=== PATIENT | male | born 2000 | race Caucasian/White ===

== ENCOUNTER 2020-01-24 12:32 | Outpatient (REF) | payer OTHER, SELFPAY | END 2020-01-24 12:33 | disposition home or self-care (01) | LOC: HO.WFDLDS 12:32 | PROVIDERS: PCP Hospitalist; Visit Provider Hospitalist | DX: Z20.828 Contact with and (suspected) exposure to other viral communicable diseases (principal) | CPT/HCPCS: 87635 ==

== ENCOUNTER 2020-03-08 12:31 | Outpatient (REF) | payer OTHER, BC, SELFPAY | END 2020-03-08 12:32 | disposition home or self-care (01) | LOC: HO.WFDLDS 12:31 | PROVIDERS: Visit Provider Internal Medicine | DX: Z20.828 Contact with and (suspected) exposure to other viral communicable diseases (principal) | CPT/HCPCS: C9803; U0003 ==

== ENCOUNTER 2020-04-16 16:36 | Outpatient (REF) | payer BC, SELFPAY | END 2020-04-16 16:37 | disposition home or self-care (01) | LOC: HO.LAB 16:36 | PROVIDERS: Visit Provider Hospitalist | DX: Z00.01 Encounter for general adult medical examination with abnormal findings (principal); R82.90 Unspecified abnormal findings in urine | CPT/HCPCS: 87086 ==

== ENCOUNTER 2020-04-18 10:24 | Outpatient (REF) | payer BC, SELFPAY ==
[2020-04-18 14:17] LABS: Hematocrit 43.3 % (42-52); Hemoglobin 14.4 g/dl (14.0-18.0); Mean Corpuscular HGB Conc 33.3 g/dl (31.0-36.0); Mean Corpuscular Hemoglobin 29.6 pg (27.0-33.0); Mean Corpuscular Volume 89.1 fL (80-98); Mean Platelet Volume 10.1 fL (9.4-12.4); Platelet Count 371 X10*3/uL (160-400); Red Blood Count 4.86 X10*6/uL (4.60-5.80); Red Cell Distribution Width 13.1 % (11.0-16.0); White Blood Count 8.2 X10*3/uL (4.8-10.8)
[2020-04-18 14:40] LABS: Alanine Aminotransferase 81 U/L (0-40); Albumin Level 4.5 g/dL (3.5-5.0); Alkaline Phosphatase 55 U/L (39-117); Anion Gap 13 (12-20); Aspartate Amino Transferase 36 U/L (5-37); Bilirubin Direct 0.3 mg/dL (0.0-0.5); Bilirubin Total 0.5 mg/dL (0.0-1.0); Blood Urea Nitrogen 15 mg/dL (9-16); Calcium 9.2 mg/dL (8.4-10.2); Carbon Dioxide 27 mmol/L (22-29); Chloride 105 mmol/L (96-108); Cholesterol 162 mg/dL; Estimated Glomerular Filt Rate > 60; Glucose Fasting 103 mg/dL (60-99); HDL Cholesterol 41 mg/dL; LDL Cholesterol Calculated 110 mg/dl; Potassium 4.2 mmol/l (3.3-5.1); Sodium 141 mmol/L (135-145); Total Protein 7.7 g/dL (6.5-8.0); Triglycerides 59 mg/dL
[2020-04-18 14:51] LABS: TSH reflex Free T4 1.49 mIU/mL (0.32-4.0)
== END 2020-04-18 10:25 | disposition home or self-care (01) ==
LOC: HO.WFDLDS 10:24
PROVIDERS: Visit Provider Hospitalist
DX: Z20.822 Contact with and (suspected) exposure to COVID-19 (principal)
CPT/HCPCS: 36415; 80048; 80061; 80076; 84443; 85027; C9803; U0003

== ENCOUNTER 2020-06-26 14:00 | Outpatient (RCR) | payer BC, SELFPAY ==
--- NOTE | 2020-06-07 07:50 | MHC.PT.OD ---
[facility] [place] Office [place] Office [place] Office [address] Chelsie Hendrix [address] [phone] F: [phone] F: [phone] F: [phone] F: [phone] Physical Therapy Daily Note Diagnosis: Pain in right shoulder- M25.511 referred to PT from PCP Quin Solorzano NP date of referral 05/22/20 Date of Surgery: Date of Evaluation: 05/31/20 Date of Treatment: 06/06/20 Treatments to Date: 1 Cancellations to Date: No Shows to Date: Authorized Visits: 12 Insurance End Date: Precautions/ Contraindications:?PMH. PER [facility] NOTES:=GE REFLUX Subjective: Pt REPORTS HIS SHLDER IS FEELING TERRIBLE . REPORTS HE WAS GIVING A TATOO YESTERDAY (SIDE JOB) AND HIS ARM WENT NUMB. AFTER FURTHER DISCUSSION HE REPORTS HE HAD A SHARP PAIN IN HIS R SHLDER THEN PAIN SHOT DOWN R ARM AND FINGERS WENT NUMB THEN THIS SENSATION WENT AWAY Pain Score and Location: 5 R SHLDER Objective Flowsheet: Tests & Measures see eval Exercises UBE 5MIN/5MIN ANT/POST NO RESISTANCE INST IN AND PERF SEATED TABLE SLIDE SHLDER FLEX/SCAPTION/ABD X 2 SETS OF 5 EA, HL FOR AAROM WITH CANE SHLDER FLEX AND CHEST PRESS X 10-20 R EA, PRONE FOR SHLDER EXT, ROW, SL SHLDER ER X 10 R EA B, STANDING ROW, SHLDER EXT, SHLDER ER WITH RED TB X 10 R EA, DIST EX SHEET SIGNIF ED TO Pt RE DX FROM [facility] HEAT STROKE NOT STROKE, ED RE TREATMENT PLAN IN PT. Pt ?ING WHAT WILL HAPPEN IF PT DOESNT HELP, ALSO DISCUSSED Pt'S WORK AND WORK CAPACITY. SPOKE WITH PRIMARY PT RE DX, TRIED TO SPEAK WITH REFERRING PROVIDER (QUIN) BUT SHE WAS WITH A Pt Modalities Assessment: Pt WITH CONFLICTING INFORMATION (VS NOTES FROM [facility] RE ADMISSION (10/12-10/13/20) ..Pt REPORTS HE WAS IN THE HOSPITAL X 4 DAYS (?) AND REPORTS HE WAS PARALYZED (?) HIS DC DIAGNOSIS WAS HEAT STROKE, SEIZURE, POST CONCUSSIVE SYNDROME. Pt WAS ABLE TO PERF STRETCHES AND EXS WITHOUT SIGNIF DIFFICULTY OR SIGNIF INCREASE IN PAIN PT Plan: PROGRESS UPPER BODY STRENGTHENING MARKO Short Term Goals: 1. Pt will be initiated in HEP program. 2. Pt will demonstrate strength bilateral shoulder flexion 5/5 to resume reaching overhead for work tasks. 3. Demonstrate proper body mechanics 20# box crate in preparation for RTW demands. 4. Strength ER 5/5 to reduce neck pain. Mcfp Goals: 1. Pt will demonstrate I HEP program for UE/cervical stab 2. SPADI score to improve by 50%. 3. Verbalize centralization sx of bilateral UE duing ADLS/IADLS. 4. RTW full duty with report pain R>L shoulder <2/10. Electronically signed by: BEBO JONES PT
--- NOTE | 2020-07-02 12:07 | MHC.PT.DC ---
[facility] [place] Office [place] Office [place] Office [address] Hendrix [address] [phone] F: [phone] F: [phone] F: [phone] F: [phone] Physical Therapy Discharge Report Diagnosis: Pain in right shoulder- M25.511 referred to PT from PCP Quin Solorzano NP date of referral 05/22/20 Date of Surgery: Date of Evaluation: 05/31/20 Date of Discharge: Treatments to Date: 6 Cancellations to Date: 5 No Shows to Date: Discharge Status: Patient Elected to Stop Visit Non-compliance Discharge Summary: Patient called to cancel appointment today; has had history of inconsistent attendance informed pt that he will be allowed one more cancellation prior to being D/C due to noncompliance. Pt verbalized difficulty hearing therapist on phone and then phone call was dropped. [place] stated patient called back and was requesting self D/C at this time. D/C pt due to non compliance- therapist recommending pt follow up with referring provider upon D/C from PT due to limited gains at this time. Electronically signed by: Esther Watkins, PT, DPT Please sign and return to therapist. Thank you for your referral.
== END 2020-07-09 08:17 | disposition other institution (70) ==
LOC: HO.PTWFD 14:00
PROVIDERS: Visit Provider Hospitalist
DX: M25.511 Pain in right shoulder (principal)
CPT/HCPCS: 97110; 97162; 97535

== ENCOUNTER 2021-08-14 14:20 | Outpatient (REF) | payer OTHER, SELFPAY ==
--- NOTE | ~2021-08-14 | MM_ITS ---
EXAMINATION: MM DIAGNOSTIC DIGITAL BREAST TOMOSYNTHESIS, BILATERAL US DIAGNOSTIC ULTRASOUND BREAST, LEFT CLINICAL INFORMATION: 21-year-old male with subtle fullness and tenderness left breast. No discharge. No prior breast imaging. No known family history breast cancer. COMPARISON: None (current study represents initial baseline exam). TECHNIQUE: Digital breast tomosynthesis is performed in both the craniocaudal and mediolateral oblique views along with computer-aided detection (CAD). Synthesized 2D images are generated from the tomosynthesis. Ultrasound left breast is targeted to the subareolar and periareolar region using grayscale imaging without and with harmonics and color Doppler. FINDINGS: There are scattered areas of fibroglandular density (ACR BI-RADS breast composition Category b). There is mild gynecomastia pattern anterior left breast. There is no mass or architectural abnormality. There are no abnormal calcifications. Scattered isolated small round dermal calcifications are present on both sides. The axilla are unremarkable. Small intramammary node present on right upper outer quadrant. No skin thickening or coarsening of the stromal markings. Ultrasound left breast demonstrates no cystic or solid mass, architectural abnormality, or focal duct ectasia. No skin thickening or edema tracking in soft tissue planes. Results are discussed with the patient at time of visit. MM/MM tomosynthesis diagnostic BI IMPRESSION: Mild asymmetric gynecomastia on left. Unremarkable right breast. ASSESSMENT: BI-RADS 2: Benign RECOMMENDATION: Patient should be managed based on the clinical impression. If clinically indicated, further evaluation may be considered with surgical consult. Decision to proceed with biopsy should be based on clinical grounds and degree of clinical concern.
== END 2021-08-14 14:21 | disposition home or self-care (01) ==
LOC: HO.MAMMO 14:20
PROVIDERS: PCP Hospitalist; Visit Provider Hospitalist
DX: N64.4 Mastodynia (principal)
CPT/HCPCS: 76642; 77062; 77066

== ENCOUNTER → 2021-09-24 13:01 | Outpatient (BNVA) | payer OTHER, SELFPAY | PROVIDERS: PCP Hospitalist; Visit Provider Internal Medicine Endocrinology, Diabetes & Metabolism | DX: N62 Hypertrophy of breast (principal) | CPT/HCPCS: 99202 ==

== ENCOUNTER → 2022-01-09 12:59 | Outpatient (BNVA) | payer OTHER, SELFPAY | PROVIDERS: PCP Hospitalist; Visit Provider Psychiatry & Neurology Neurology | DX: G40.909 Epilepsy, unspecified, not intractable, without status epilepticus (principal); R06.83 Snoring; G47.10 Hypersomnia, unspecified | CPT/HCPCS: 99202 ==

== ENCOUNTER 2022-01-13 09:36 | Outpatient (REF) | payer OTHER, SELFPAY ==
--- NOTE | ~2022-01-13 | XR_ITS ---
EXAMINATION: XR HIP, RIGHT CLINICAL INFORMATION: Pain COMPARISON: None TECHNIQUE: Two views of the right hip. FINDINGS: Bones and soft tissues are normal. No fracture. Alignment is anatomic. Hip joint space is maintained. XR/XR hip RT min 2V IMPRESSION: Normal right hip.
[2022-01-13 11:48] LABS: Hematocrit 43.3 % (42.0-52.0); Hemoglobin 14.3 g/dl (14.0-18.0); Mean Corpuscular Hemoglobin 29.2 pg (27.0-33.0); Mean Corpuscular Volume 88.4 fL (80.0-98.0); Mean Platelet Volume 10.2 fL (9.4-12.4); Platelet Count 376 X10*3/uL (160-400); Red Cell Distribution Width 13.2 % (11.0-16.0); White Blood Count 8.7 X10*3/uL (4.8-10.8)
[2022-01-13 12:18] LABS: TSH reflex Free T4 3.02 uIU/mL (0.32-4.0)
[2022-01-13 12:24] LABS: Alanine Aminotransferase 88 U/L (0-40); Albumin Level 4.6 g/dL (3.5-5.0); Alkaline Phosphatase 55 U/L (39-117); Anion Gap 17 (12-20); Aspartate Amino Transferase 44 U/L (5-37); Bilirubin Total 0.6 mg/dL (0.0-1.0); Blood Urea Nitrogen 17 mg/dL (9-16); Calcium 9.6 mg/dL (8.4-10.2); Carbon Dioxide 26 mmol/L (22-29); Chloride 102 mmol/L (96-108); Cholesterol 170 mg/dL; Estimated Glomerular Filt Rate > 60; Glucose Fasting 85 mg/dL (60-99); HDL Cholesterol 48 mg/dL; LDL Cholesterol Calculated 108 mg/dl; Potassium 4.6 mmol/L (3.3-5.1); Sodium 140 mmol/L (135-145); Triglycerides 72 mg/dL
[2022-01-15 08:52] LABS: DHEA Sulfate 367 mcg/dL (74-617)
[2022-01-19 20:37] LABS: Testosterone, Free 54.6 pg/mL (35.0-155.0); Testosterone, Total 307 ng/dL (250-1100)
[2022-01-26 02:57] LABS: Estradiol Free 0.75 pg/mL; Estradiol, Ultrasensitive 37 pg/mL (< OR = 29)
== END 2022-01-13 09:37 | disposition home or self-care (01) ==
LOC: HO.LAB 09:36
PROVIDERS: Absent Provider Internal Medicine Endocrinology, Diabetes & Metabolism; PCP Hospitalist; Visit Provider Hospitalist
DX: Z00.00 Encounter for general adult medical examination without abnormal findings (principal); M25.551 Pain in right hip; N62 Hypertrophy of breast
CPT/HCPCS: 36415; 73502; 80053; 80061; 82627; 82670; 82681; 84402; 84403; 84443; 85027

== ENCOUNTER → 2022-01-23 16:01 | Outpatient (REF) | payer OTHER, SELFPAY | LOC: HO.SL 16:01 | PROVIDERS: Visit Provider Psychiatry & Neurology Neurology | DX: G47.10 Hypersomnia, unspecified (principal); R06.83 Snoring | CPT/HCPCS: 95806 ==

== ENCOUNTER 2022-01-24 18:59 | Outpatient (REF) | payer OTHER, SELFPAY ==
--- NOTE | ~2022-01-24 | MR_ITS ---
EXAMINATION: MR BRAIN WITHOUT CONTRAST CLINICAL INFORMATION: Epilepsy. COMPARISON: None. TECHNIQUE: Multiplanar, multisequence imaging of the brain was acquired on a 3 Sommer magnet without intravenous administration of contrast. FINDINGS: No diffusion abnormalities are identified to suggest an acute infarct. The ventricles are normal in size. No mass effect or midline shift is seen. No brain parenchymal signal abnormality is noted. No extra-axial fluid collections are seen. The brainstem and cerebellum are normal. No focal cortical dysplasia or migrational abnormality is seen. The hippocampi are normal in appearance. The gradient refocused acquisition demonstrates no pathologic magnetic susceptibility artifact to indicate underlying acute or chronic blood products. The craniovertebral junction, marrow signal, and midline structures are normal. The orbits and pituitary axis appear normal. The major intracranial flow voids at the level of the [place] are preserved. The dural venous sinus flow voids are maintained. The mastoid air cells are well aerated. There is mild right maxillary sinus mucosal thickening. MR/MR head/brain wo con IMPRESSION: Normal MRI of the brain. No acute process. No epileptogenic focus identified. No hippocampal pathology.
== END 2022-01-24 19:00 | disposition home or self-care (01) ==
LOC: HO.MRI 18:59
PROVIDERS: Visit Provider Psychiatry & Neurology Neurology
DX: G40.909 Epilepsy, unspecified, not intractable, without status epilepticus (principal)
CPT/HCPCS: 70551

== ENCOUNTER 2022-03-06 16:28 | Outpatient (REF) | payer OTHER, SELFPAY ==
--- NOTE | ~2022-03-06 | US_ITS ---
EXAMINATION: US SCROTUM CLINICAL INFORMATION: Hypertrophy of breast. COMPARISON: None TECHNIQUE: A sonogram of the scrotum was performed assessing erickson-scale appearance and color Doppler flow. Spectral Doppler analysis of the arterial and venous flow were performed in the testes bilaterally. FINDINGS: RIGHT: Right testicle measures 3.7 x 2.1 x 2.6 cm, volume 9.8 mL. No focal testicular parenchymal lesions are visualized. Spectral Doppler analysis of the arterial and venous flow is normal in the right testis. Right epididymal head is normal in size. No right hydrocele or varicocele is seen. Right epididymal Doppler flow is normal. LEFT: Left testicle measures 3.8 x 2.0 x 2.7 cm, volume 10.2 mL. There is a dense echogenic calcification measuring 0.2 x 0.2 x 0.3 cm. No additional lesions are seen. Spectral Doppler analysis of the arterial and venous flow is normal in the left testis. Left epididymal head is normal in size. There is a small, simple, epididymal head cyst measuring 0.31 x 0.4 x 0.4 cm. No left hydrocele or varicocele is seen. Left epididymal Doppler flow is normal. US/US scrotum IMPRESSION: 1. Small left epididymal head cyst. 2. There is a dense calcification in the left testis. 3. The testes are otherwise unremarkable. 4. Normal vascular flow seen to both testes and epididymides.
== END 2022-03-06 16:29 | disposition home or self-care (01) ==
LOC: HO.US 16:28
PROVIDERS: Visit Provider Internal Medicine Endocrinology, Diabetes & Metabolism
DX: N62 Hypertrophy of breast (principal)
CPT/HCPCS: 76870

== ENCOUNTER → 2022-03-13 14:53 | Outpatient (BNVA) | payer OTHER, SELFPAY | PROVIDERS: PCP Hospitalist; Visit Provider Nurse Practitioner Family | DX: G40.909 Epilepsy, unspecified, not intractable, without status epilepticus (principal) | CPT/HCPCS: 99212 ==

== ENCOUNTER → 2022-04-24 13:54 | Outpatient (BNVA) | payer OTHER, SELFPAY | PROVIDERS: PCP Hospitalist; Visit Provider Nurse Practitioner Family | DX: G40.909 Epilepsy, unspecified, not intractable, without status epilepticus (principal) | CPT/HCPCS: 99212 ==

== ENCOUNTER → 2022-05-29 14:31 | Outpatient (BNVA) | payer OTHER, SELFPAY | PROVIDERS: PCP Hospitalist; Visit Provider Physician Assistant Surgical | DX: Z13.89 Encounter for screening for other disorder (principal) ==

== ENCOUNTER → 2022-06-04 08:09 | Outpatient (BNVA) | payer OTHER, SELFPAY | PROVIDERS: PCP Hospitalist; Visit Provider Surgery | DX: Z13.89 Encounter for screening for other disorder (principal) ==

== ENCOUNTER → 2022-06-05 15:08 | Outpatient (BNVA) | payer OTHER, SELFPAY | PROVIDERS: PCP Hospitalist; Visit Provider Nurse Practitioner Family | DX: G40.909 Epilepsy, unspecified, not intractable, without status epilepticus (principal); Z79.899 Other long term (current) drug therapy | CPT/HCPCS: 99212 ==

== ENCOUNTER 2022-06-07 19:48 | Emergency (ER) | payer OTHER, SELFPAY ==
[2022-06-07 20:38] VITALS: BP 149/95; PULSE 95; RESP 18; TEMP 36.6; O2SAT 98; BMI 41.3
--- NOTE | 2022-06-07 20:39 | ED.GENADULT ---
HPI - General Adult General Chief complaint: Upper Respiratory Symptoms Stated complaint: Sinus pressure Time Seen by Provider: 06/07/22 20:42 Source: patient Mode of arrival: ambulatory Limitations: no limitations History of Present Illness HPI narrative: Patient is a 21 year old assigned male at with a history of a seizure disorder presenting to the emergency department today with 7 days of sinus pressure and congestion. Patient states that over the last 7 days he has had increased sinus pressure and nasal congestion. Patient denies any dizziness, lightheadedness, abdominal pain, nausea, vomiting, fever, chills, blurry vision, double vision, loss of vision, chest pain, difficulty breathing, shortness of breath, back pain, night sweats, pain with urination, increased urinary frequency, increased urinary urgency, blood in his urine or stool, syncope or a near syncopal episode, recent trauma or falls, bowel incontinence, bladder incontinence, bowel retention, bladder retention, or any other complaints at this time. Onset (ago): day(s) (7) Radiation: non-radiation Severity: mild Severity scale (1-10): 2 Quality: dull Pain Consistency: constant Relieving factors: none Exacerbating factors: none Associated symptoms: denies other symptoms Treatments prior to arrival: none Related Data Home Medications Medication Instructions Recorded Confirmed omeprazole 20 mg capsule,delayed 20 mg PO BID 05/29/22 06/05/22 release fluoxetine 20 mg capsule 20 mg PO DAILY 06/05/22 06/05/22 Previous Rx's Medication Instructions Recorded oxcarbazepine 300 mg tablet 600 mg PO BID 30 days #120 tabs 06/05/22 doxycycline hyclate 100 mg tablet 100 mg PO BID 7 days #14 tabs 06/07/22 naproxen 500 mg tablet 500 mg PO BID 7 days #14 tabs 06/07/22 Allergies Allergy/AdvReac Type Severity Reaction Status Date / Time tree nut [TREE NUT] Allergy Severe THOAT Verified 06/07/22 20:38 SWELLING Review of Systems Constitutional: Constitutional: Reports no additional constitutional complaints, Denies chills, Denies fever(s) and Denies night sweats Eyes: Eyes: Reports no additional eye complaints, Denies blurry vision, Denies change in vision, Denies diplopia, Denies eye discharge, Denies loss of vision and Denies eye pain ENT: Denies dizziness and Reports sinus pain Cardiovascular: Cardiovascular: Reports no additional cardiovascular complaints, Denies chest pain, Denies lightheadedness, Denies Loss of Consciousness and Denies dyspnea Respiratory: Respiratory: Reports no additional respiratory complaints and Denies dyspnea Gastrointestinal: Gastrointestinal: Reports no additional gastrointestinal complaints, Denies abdominal pain, Denies melena, Denies hematochezia, Denies change in bowel habits and Denies change in stool character Genitourinary: Genitourinary: Reports no additional male genitourinary complaints, Denies hematuria, Denies oliguria, Denies difficulty urinating, Denies dysuria, Denies urinary frequency, Denies urinary hesitancy, Denies urinary incontinence and Denies urinary urgency Musculoskeletal: Musculoskeletal: Reports no additional musculoskeletal complaints, Denies numbness and Denies tingling Neurologic: Denies dizziness, Denies loss of vision, Denies numbness and Denies tingling Psychiatric: Psychiatric: Reports no additional psychiatric complaints Endocrine: Endocrine: Reports no additional endocrine complaints Hematologic/Lymphatic: Hematologic/Lymphatic: Reports no additional hematologic/lymphatic complaints Allergic/Immunologic: Allergic/Immunologic: Reports no additional allergic/immunologic complaints [facility] Past Medical History Attestation statement: The following information was validated with the patient. 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 Cognitive needs: No Hearing needs: No Vision needs: No Physical Exam ED Vital Signs: Vital Signs - 24 hr 06/07/22 20:38 Temperature 97.9 F Pulse Rate 95 Respiratory Rate 18 Blood Pressure 149/95 H Pulse Oximetry 98 Oxygen Delivery Method Room Air BMI result Body Mass Index 41.3 Const General: cooperative, no acute distress, alert and awake Nutritional Appearance: well nourished Orientation/consciousness: patient oriented x3 Limitations: no limitations HENMT Head: Yes normal to inspection and Yes atraumatic Ears: hearing grossly normal bilaterally and external ears normal General nose exam: Normal external nose present, no nasal discharge noted and no epistaxis Face and sinus: Yes normal facial exam, No abrasion and No laceration Mouth: Normal oral and palatal mucosa present, no drooling and no muffled voice Eyes General: appearance normal, both eyes and all related structures Periorbital: periorbital findings normal Eyelids: Yes eyelids normal Conjunctivae: conjunctivae normal Pupils: Equal, round and reactive pupils present EOM: EOMs intact bilaterally Neck Neck: Yes normal visual inspection, Yes full ROM and Yes no lymphadenopathy Chest Chest palpation & inspection: normal inspection of the chest Resp Effort & Inspection: normal respiratory effort and able to speak in complete sentences Auscultation: clear to auscultation bilaterally Cardio Rate: regular rate Rhythm: regular rhythm GI Inspection: Yes normal to inspection Neuro General: patient oriented x3 and moves all extremities Cranial nerves: Yes Equal, round and reactive pupils present Cognition (Neuro): normal cognition Motor exam (neuro): 5/5 motor strength present throughout Sensory Exam: Normal double simultaneous stimulation for sensation Coordination: [id number] test normal Extrem General: Yes normal to inspection, Yes full ROM and Yes capillary refill normal Psych Appearance: grossly normal Mental Status: mental status grossly normal Affect: normal affect Attitude: cooperative Thought process: Normal thought process present Thought content: Normal thought content present Insight: Good insight present (Psych) Medical Decision Making Medical Decision Making MDM Narrative: Patient is a 21 year old assigned male at with a history of a seizure disorder presenting to the emergency department today with sinus pain and pressure. Patient's physical exam was unremarkable. Patient's clinical presentation is most consistent with sinusitis. I explained my physical exam findings to the patient. I answered all questions asked by the patient. I stressed the importance of the patient taking his medication as prescribed. I stressed the importance of the patient following up with his primary care provider. I stressed the importance of the patient returning to the emergency department immediately if his symptoms were to worsen or if he were to develop any dizziness, shortness of breath, difficulty breathing, chest pain, blurry vision, loss of vision, nausea, vomiting, abdominal pain, fever, chills, back pain, or any other complaints. Patient verbalized agreement and understanding with this treatment plan and discharge. Differential Diagnosis Differential Diagnoses: The differential diagnosis associated with the presentation includes sinusitis Discharge Plan Discharge Clinical Impression: Sinusitis Patient Disposition: Home, Self-Care Instructions: Sinusitis (ED) Additional Instructions: Follow up with your primary care provider. Return to the emergency department immediately if your symptoms worsen or if you develop any dizziness, shortness of breath, difficulty breathing, chest pain, blurry vision, loss of vision, nausea, vomiting, abdominal pain, fever, chills, back pain, or any other complaints. Prescriptions: New doxycycline hyclate 100 mg tablet 100 mg PO BID 7 Days Qty: 14 0RF naproxen 500 mg tablet 500 mg PO BID 7 Days Qty: 14 0RF No Action oxcarbazepine 300 mg tablet 600 mg PO BID 30 Days Qty: 120 1RF fluoxetine 20 mg capsule 20 mg PO DAILY omeprazole 20 mg capsule,delayed release(DR/EC) 20 mg PO BID Referrals: Quin Solorzano NP [Primary Care Provider] - Interventions: ED Discharge Assessment Last Done: 06/07/22 20:44 Discharge Date/Time: 06/07/22 20:57 Print Language: Armenian
--- NOTE | 2022-06-07 20:44 | PC.NURSE ---
pt a&ox3, vss, reporting sinus pressure after URI sx for 5+ days, pt discharged with rx to pharmacy.
== END 2022-06-07 20:57 | disposition home or self-care (01) ==
LOC: HO.ED 20:44
PROVIDERS: Emergency Provider Student in an Organized Health Care Education/Training Program; PCP Hospitalist
DX: J32.9 Chronic sinusitis, unspecified (principal)
CPT/HCPCS: 99282; 99283

== ENCOUNTER → 2022-07-16 13:35 | Outpatient (BNVA) | payer OTHER, SELFPAY | PROVIDERS: PCP Hospitalist; Visit Provider Nurse Practitioner Family | DX: G40.909 Epilepsy, unspecified, not intractable, without status epilepticus (principal) | CPT/HCPCS: 99212 ==

== ENCOUNTER → 2022-07-25 07:59 | Outpatient (BNVA) | payer OTHER, SELFPAY | PROVIDERS: PCP Hospitalist; Visit Provider Surgery ==

== ENCOUNTER → 2022-08-18 08:15 | Outpatient (BNVA) | payer OTHER, SELFPAY | PROVIDERS: PCP Hospitalist; Visit Provider Surgery ==

== ENCOUNTER 2022-08-20 13:31 | Outpatient (REF) | payer OTHER, SELFPAY ==
[2022-08-20 13:53] LABS: MANUAL DIFF FLAG NO
[2022-08-20 14:35] LABS: Basophils Percent Auto 0.5 % (0-2); Eosinophils Absolute Auto 0.2 X10*3/uL (0.0-0.4); Hematocrit 42.8 % (42.0-52.0); Hemoglobin 14.2 g/dl (14.0-18.0); Imm Gran Abs Auto 0.02 X10*3/uL (0.00-0.03); Imm Gran Pct Auto 0.2 % (0.0-0.4); Lymphocytes Absolute Auto 2.6 X10*3/uL (1.2-4.9); Mean Corpuscular HGB Conc 33.2 g/dl (31.0-36.0); Mean Corpuscular Hemoglobin 29.4 pg (27.0-33.0); Mean Corpuscular Volume 88.6 fL (80.0-98.0); Mean Platelet Volume 9.5 fL (9.4-12.4); Monocytes Absolute Auto 0.7 X10*3/uL (0.1-1.2); Monocytes Percent Auto 7.7 % (2-11); Neutrophils Absolute Auto 4.9 x10*3/uL (2.0-8.3); Neutrophils Percent Auto 58.6 % (45-73); Platelet Count 371 X10*3/uL (160-400); Red Blood Count 4.83 X10*6/uL (4.60-5.80); Red Cell Distribution Width 13.2 % (11.0-16.0); White Blood Count 8.4 X10*3/uL (4.8-10.8)
[2022-08-20 14:58] LABS: Estimated Average Glucose 103 mg/dL; Hemoglobin A1c % 5.2 %
[2022-08-20 16:04] LABS: Alanine Aminotransferase 137 U/L (0-40); Albumin Level 4.3 g/dL (3.5-5.0); Alkaline Phosphatase 57 U/L (39-117); Anion Gap 15 (12-20); Aspartate Amino Transferase 55 U/L (5-37); Bilirubin Total 0.7 mg/dL (0.0-1.0); Blood Urea Nitrogen 18 mg/dL (9-16); C Reactive Protein 0.59 mg/dL (< or = 0.50); Calcium 9.5 mg/dL (8.4-10.2); Carbon Dioxide 28 mmol/L (22-29); Chloride 104 mmol/L (96-108); Cholesterol 192 mg/dL; Estimated Glomerular Filt Rate > 60; Glucose Random 95 mg/dL (60-115); HDL Cholesterol 45 mg/dL; Iron 89 mcg/dL (45-160); LDL Cholesterol Calculated 129 mg/dl; Percent Iron Saturation 28 % (15-50); Potassium 4.5 mmol/L (3.3-5.1); Sodium 142 mmol/L (135-145); Total Iron Binding Capacity 313 mcg/dL (228-428); Total Protein 7.7 g/dL (6.5-8.0); Triglycerides 90 mg/dL; Unsaturated Iron Binding 224 ug/dL
[2022-08-20 16:34] LABS: Ferritin 306 ng/mL (20-250); Insulin 21 uU/mL (2-29); TSH reflex Free T4 2.95 uIU/mL (0.32-4.0); Vitamin B12 568 pg/mL (200-900); Vitamin D 25-OH Total 7.6 ng/mL (>30)
[2022-08-21 15:44] LABS: Calcium (PTHI) 9.3 mg/dL (8.6-10.3); PTHI 60 pg/mL (16-77)
[2022-08-24 14:59] LABS: H Pylori Breath Test Positive (Negative)
[2022-08-27 14:28] LABS: Vitamin B1 10 nmol/L (8-30)
[2022-08-28 02:34] LABS: Zinc 110 mcg/dL (60-130)
[2022-08-28 20:24] LABS: Vitamin A 33 mcg/dL (38-98)
== END 2022-08-20 13:32 | disposition home or self-care (01) ==
LOC: HO.LAB 13:31
PROVIDERS: Visit Provider Surgery
DX: E66.01 Morbid (severe) obesity due to excess calories (principal); K21.9 Gastro-esophageal reflux disease without esophagitis; N50.89 Other specified disorders of the male genital organs; N62 Hypertrophy of breast; N50.819 Testicular pain, unspecified
CPT/HCPCS: 36415; 80053; 80061; 82306; 82607; 82728; 82746; 83013; 83036; 83525; 83540; 83970; 84425; 84443; 84590; 84630; 85025; 86140; 99202; 99211

== ENCOUNTER 2022-08-20 14:53 | Outpatient (AMB) | payer OTHER, SELFPAY ==
--- NOTE | 2022-08-20 15:07 | MHC.OFFVIS ---
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 08/20/2022-- States having testicular pain while touching or taking the shower. had lump in breast and has followed with cat swamper. He states the lump in his breast is more noticeable while sitting. The patient states that he is adopted but he is aware that his maternal grandfather had lung cancer and great grandfather had testicular cancer, maternal uncle has testicular cancer and his mother had early stage breast cancer. Evaluation today-- Blood: negative, leukocytes: negative. I reviewed testicular sono results- 02/2022-dense calcification in the left testis. I discussed that the calcification is not unusual and will repeat imaging to make sure findings are stable. I have discussed that it is unlikely that the calcification is related to his symptoms of testicular pain. Instructed to wear supportive underwear. Plan: Testicular US was ordered. Blood work including Prolactin, Lutenizing Hormone,Testosterone, Free/Total,Follicle Stimulating Hormone, estradiol, HCG and LDH was ordered. Follow-up after 10 weeks. [facility] Medical History (Updated 10/31/22 @ 00:30 by Tori Olmedo MD) Anxiety Depression Enlarged heart Gynecomastia H. 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 Cognitive needs: No Hearing needs: No Vision needs: No Review of Systems Const All systems reviewed & are unremarkable except as noted in HPI and below Reports no additional complaints Eyes Reports no additional complaints ENT Reports no additional complaints Card Denies dyspnea Resp Denies cough and Denies dyspnea GI Reports no additional complaints Musc Reports no additional complaints Skin/Breast Denies rash and Denies unusual bruising Neuro Reports no additional complaints Psych Reports no additional complaints Endo Reports no additional complaints Chris/Lymph Reports no additional complaints Aller/Immun Reports no additional complaints Physical Exam Const General: healthy appearing, no acute distress and well developed Orientation/consciousness: patient oriented x3 HEENT Head: Yes normocephalic and Yes atraumatic Eyes Conjunctivae: conjunctivae normal Neck Neck: Yes normal visual inspection Chest Chest palpation & inspection: normal inspection of the chest Resp Effort & Inspection: normal respiratory effort Cardio Rate: regular rate GI Inspection: Yes normal to inspection Palpation (GI): Soft to palpation Scrotum: scrotum normal Skin General skin exam: no rashes or lesions noted Neuro General: patient oriented x3 Extrem General: No pedal edema Psych Appearance: grossly normal Affect: normal affect Results AMB Urinalysis, Automated UA Leukoctes 0 Laura/uL Last Edit by [employer] on 08/20/22 15:31 UA Nitrite Negative Last Edit by [employer] on 08/20/22 15:31 UA Urobilinogen 0.2 mg/dL Last Edit by [employer] on 08/20/22 15:31 UA Protein 0 mg/dL Last Edit by [employer] on 08/20/22 15:31 UA pH 6.0 Last Edit by [employer] on 08/20/22 15:31 UA Blood 0 Waqas/uL Last Edit by [employer] on 08/20/22 15:31 UA Specific [place] 1.020 Last Edit by [employer] on 08/20/22 15:31 UA Ketone Negative Last Edit by [employer] on 08/20/22 15:31 UA Bilirubin 0 mg/dL Last Edit by [employer] on 08/20/22 15:31 UA Glucose 0 mg/dL Last Edit by [employer] on 08/20/22 15:31 Results Reviewed Results Reviewed: Laboratory Last Values Urine pH (Auto) 6.0 08/20/22 15:16 Specific [place] (Auto) 1.020 08/20/22 15:16 Urine Protein (Auto) 0 mg/dL 08/20/22 15:16 Glucose (UA)(Auto) 0 mg/dL 08/20/22 15:16 Urine Ketones (Auto) Negative 08/20/22 15:16 Urine Blood (Auto) 0 Waqas/uL 08/20/22 15:16 Urine Nitrite (Auto) Negative 08/20/22 15:16 Urine Bilirubin (Auto) 0 mg/dL 08/20/22 15:16 Urine Urobilinogen (Auto) 0.2 mg/dL 08/20/22 15:16 Leukocyte Esterase (Auto) 0 Laura/uL 08/20/22 15:16 Date of Service: 03/06/22 EXAMINATION: US SCROTUM CLINICAL INFORMATION: Hypertrophy of breast. COMPARISON: None TECHNIQUE: A sonogram of the scrotum was performed assessing erickson-scale appearance and color Doppler flow. Spectral Doppler analysis of the arterial and venous flow were performed in the testes bilaterally. FINDINGS: RIGHT: Right testicle measures 3.7 x 2.1 x 2.6 cm, volume 9.8 mL. No focal testicular parenchymal lesions are visualized. Spectral Doppler analysis of the arterial and venous flow is normal in the right testis. Right epididymal head is normal in size. No right hydrocele or varicocele is seen. Right epididymal Doppler flow is normal. LEFT: Left testicle measures 3.8 x 2.0 x 2.7 cm, volume 10.2 mL. There is a dense echogenic calcification measuring 0.2 x 0.2 x 0.3 cm. No additional lesions are seen. Spectral Doppler analysis of the arterial and venous flow is normal in the left testis. Left epididymal head is normal in size. There is a small, simple, epididymal head cyst measuring 0.31 x 0.4 x 0.4 cm. No left hydrocele or varicocele is seen. Left epididymal Doppler flow is normal. IMPRESSION: 1.? Small left epididymal head cyst. 2.? There is a dense calcification in the left testis. 3.? The testes are otherwise unremarkable. 4.? Normal vascular flow seen to both testes and epididymides. Assessment & Plan Assessment & Plan (1) Gynecomastia: Code(s): N62 - Hypertrophy of breast (2) Testicular calcification: Code(s): N50.89 - Other specified disorders of the male genital organs (3) Testicular pain: Code(s): N50.819 - Testicular pain, unspecified Plan Testicular US was ordered. Blood work including Prolactin, Lutenizing Hormone,Testosterone, Free/Total,Follicle Stimulating Hormone, estradiol, HCG and LDH was ordered. Follow-up after 10 weeks. Orders: Orders Estradiol Ultra Sensitive 08/20/22 N62 - Hypertrophy of breast Follicle Stimulating Hormone 08/20/22 N62 - Hypertrophy of breast HCG Tumor Marker 08/20/22 N50.89 - Other specified disorders of the male genital organs Lutenizing Hormone 08/20/22 N62 - Hypertrophy of breast Prolactin 08/20/22 N62 - Hypertrophy of breast Testosterone, Free/Total 08/20/22 N62 - Hypertrophy of breast US scrotum 08/20/22 N50.89 - Other specified disorders of the male genital organs AMB Urinalysis Automated 08/20/22 Z13.9 - Encounter for screening, unspecified Coding Level of Care Code New Pt Level 3 (85926) Diagnoses Gynecomastia N62 Testicular calcification N50.89 Testicular pain N50.819
== END 2022-08-20 15:52 | disposition home or self-care (01) ==
LOC: HO.HUSH 14:53
PROVIDERS: PCP Hospitalist; Visit Provider Urology
DX: N62 Hypertrophy of breast (principal); N50.89 Other specified disorders of the male genital organs; N50.819 Testicular pain, unspecified
CPT/HCPCS: 99203

== ENCOUNTER → 2022-09-01 13:31 | Outpatient (BNVA) | payer OTHER, SELFPAY | PROVIDERS: PCP Hospitalist; Visit Provider Nurse Practitioner Family | DX: G40.909 Epilepsy, unspecified, not intractable, without status epilepticus (principal) | CPT/HCPCS: 99212 ==

== ENCOUNTER 2022-09-04 11:37 | Outpatient (REF) | payer OTHER, SELFPAY ==
--- NOTE | ~2022-09-04 | US_ITS ---
EXAMINATION: US SCROTUM CLINICAL INFORMATION: Testicular calcification. COMPARISON: Ultrasound scrotum 03/06/2022. TECHNIQUE: A sonogram of the scrotum was performed assessing erickson-scale appearance and color Doppler flow. Spectral Doppler analysis of the arterial and venous flow were performed in the testes bilaterally. FINDINGS: RIGHT: Right testicle measures 4.0 x 1.9 x 2.8 cm, volume 11.1 mL. No focal testicular parenchymal lesions are visualized. Spectral Doppler analysis of the arterial and venous flow is normal in the right testis. Right epididymal head is normal in size. A 3 x 4.5 mm cyst is noted in the head of the epididymis. No significant right hydrocele or varicocele is seen. Right epididymal Doppler flow is normal. LEFT: Left testicle measures 3.9 x 1.9 x 2.8 cm, volume 10.9 mL. Echogenicity is homogeneous with the exception of an area of globular calcification in the left testis which is completely unchanged when compared to 03/06/2022. Spectral Doppler analysis of the arterial and venous flow is normal in the left testis. Left epididymal head is normal in size. A 1 x 1 x 3 mm cyst is noted in the head of the left epididymis. No significant left hydrocele or varicocele is seen. Left epididymal Doppler flow is normal. US/US scrotum IMPRESSION: 1.No significant change in the calcification in the left testis since 03/06/2022. This is almost certainly benign. Follow-up exam is recommended in 1 year. 2. Bilateral small epididymal head cysts. 3.No evidence of a worrisome testicular mass or other significant abnormality.
== END 2022-09-04 11:38 | disposition home or self-care (01) ==
LOC: HO.HMGCX 11:37
PROVIDERS: PCP Hospitalist; Visit Provider Urology
DX: N50.89 Other specified disorders of the male genital organs (principal)
CPT/HCPCS: 76870

== ENCOUNTER 2023-02-18 10:41 | Outpatient (AMB) | payer OTHER, SELFPAY ==
[2023-02-18 10:53] VITALS: BP 126/70; PULSE 79; RESP 13; TEMP 36.5; O2SAT 99; BMI 43.2
--- NOTE | 2023-02-18 10:53 | A.OFFPC_ITS ---
Vital Signs 02/18/23 10:53 Height 5 ft 7 in Weight 276 lb 2 oz BMI 43.2 BP 126/70 Blood Pressure Location Rt brachial Position Sitting Respiration 13 Pulse 79 Pulse Source Pulse Oximeter Temp 97.7 F Temp Source Temporal Artery Scan Pulse Oximetry (%) 99 Oxygen Delivery Method Room Air Intake Visit Reasons: transfer of care Intake Note: Patient states that its been hard to breath out of nose. Recently he states that he had bllod draining from nose into mouth. Patient states he has a deviated septum. Patient states that when he wakes up in the morning he is congested in back of throat and has hard pieces that look like cartilage from nose that he spits up. Allergies tree nut [TREE NUT] Allergy (Severe, Verified 02/18/23 11:16) THOAT SWELLING Medication List - Last Reconciled 02/18/23 by Oracio Nicole CNP fluoxetine 20 mg PO DAILY omeprazole 40 mg PO DAILY oxcarbazepine 600 mg (2 x 300 mg) PO BID 30 days Tobacco use date assessed: 02/18/23 Dental Screening Dental Screen Date: 02/18/23 Did you have a dental visit in the last 12 months?: No Did you have a dental problem in the last 6 months where you did not have access to dental care?: No Was dental information given to patient?: Patient has dentist HPI HPI Comments History of Present Illness Details 22-year-old male presents for transfer o f care His former PCP is AUBREY who is no longer with the practice He has past medical history significant for seizures, GERD, obesity, anxiety, and depression He admits to taking his medications as prescribed His last blood work was in July 2022; unremarkable findings except for elevated AST and ALT, 55 and 137 respectively He reports nasal congestion with occasional nosebleed since March,. He states that he has a deviated nasal septum He is followed by [facility] Neurology for seizures and Urology for testicular calcification and gynecomastia He was evaluated by [facility] endocrinology for gynecomastia He is followed [facility] weight management and was due to have a gastric sleeve procedure. However, the procedure was postponed until he his left breast screened and clear for breast cancer. He had a mammogram done last month with thses findings: Mild asymmetric gynecomastia on left. Unremarkable right breast. He notes that he has urology f/u next month and his next mammogram will be determined. [facility] Medical History H. pylori infection Anxiety Depression Gynecomastia Seizure Muscle degeneration Heart murmur Enlarged heart Surgical History No pertinent past surgical history Family History Father Epilepsy Brother Epilepsy Sister Epilepsy Housing: Apartment Patient Tobacco Use Status: Never used Tobacco e-Cigarette/Vaping Use: Never Used service: No Current occupational status: employed Current occupation: [employer] Cognitive needs: No Hearing needs: No Vision needs: No Questionnaire PHQ-9 Over the last 2 weeks, how often have you been bothered by any of the following problems? 1. Little interest or pleasure in doing things: nearly every day 2. Feeling down, depressed, or hopeless: several days 3. Trouble falling or staying asleep, or sleeping too much: nearly every day 4. Feeling tired or having little energy: nearly every day 5. Poor appetite or overeating: several days 6. Feeling bad about yourself - or that you are a failure or have let yourself or your family down: not at all 7. Trouble concentrating on things, such as reading the newspaper or watching television: not at all 8. Moving or speaking so slowly that other people could have noticed. Or the opposite - being so fidgety or restless that you have been moving around a lot more than usual: not at all 9. Thoughts that you would be better off or of hurting yourself in some way: not at all Total score: 11 Depression Screening Interpretation: Positive Depression Screening Follow-up: Existing condition and In treatment Depression Screening Done: Yes 87759 - PHQ-9 Billing: Yes Source: Developed by Drs. Herbie García, Nelli Ewing, Mohsen Fregoso and colleagues, with an educational michael from [employer]. Thrive Questionnaire Date Thrive assessed: 02/18/23 I am a: Patient What is your living situation today?: I have a steady place to live Within the past 12 months, did the food you bought not last and you didn't have the money to get more?: Never true Within the past 12 months, did you worry whether your food would run out before you got money to buy more?: Never true Do you have trouble paying for medicines?: No Do you have trouble getting transportation to medical appointments?: No Do you have trouble paying your heating and electricity bill?: No Do you have trouble taking care of your child, family member or friend?: No Do you have trouble with day-to-day activities such as bathing, preparing meals, shopping, managing finances, etc.?: No Are you currently unemployed and looking for a job?: No Are you interested in more education?: No Please select the resources that you would like help with: None Currently or been in a relationship where the following occur: no concerns reported AUDIT C Alcohol Use Questionnaire (AUDIT-C) 1. How often do you have a drink containing alcohol?: Never 3. How often do you have six or more drinks on one occasion?: Never Total Score: 0 YARIEL-7 AMB Questionnaire YARIEL-7 Date YARIEL - 7 assessed: 02/18/23 Feeling nervous, anxious, or on edge: 3 = Nearly every day Not being able to stop or control worryin = Several days Worrying too much about different things: 3 = Nearly every day Trouble relaxin = Nearly every day Being so restless that it is hard to sit still: 1 = Several days Becoming easily annoyed or irritable: 3 = Nearly every day Feeling afraid as if something awful might happen: 1 = Several days Total YARIEL-7 score (0-4 normal; 5-9 mild; 10-14 moderate; 15-21 severe): 15 Source: Developed by Drs. Herbie García, Nelli Ewing, Mohsen Fregoso and colleagues, with an educational michael from [employer]. YARIEL-7 Assessment Billing YARIEL-7 Assessment Tool: YARIEL-7 Assessment 85126 Review of Systems Const Details: Const Denies chills, Denies fatigue, Denies fever(s), Denies headache(s) and Denies weakness ENT Reports as per HPI Card Denies chest pain, Denies lightheadedness, Denies dyspnea and Denies other (Palpitations) Resp Denies cough, Denies dyspnea, Denies wheezing and Denies other ( shortness of breath) GI Denies abdominal pain, Denies melena, Denies hematochezia, Denies change in bowel habits, Denies dyspepsia and Denies nausea Denies hematuria and Denies dysuria Musc Denies abnormal gait, Denies myalgias, Denies arthralgias, Denies numbness and Denies tingling Skin/Breast Denies rash, Denies unusual bruising and Denies wounds Neuro Denies abnormal gait, Denies dizziness, Denies headache(s), Denies memory loss, Denies numbness, Denies Sensory deficit (Neuro), Denies tingling and Denies weakness Psych Denies anxiety, Denies depression, Denies memory loss Endo Denies cold intolerance, Denies fatigue, Denies heat intolerance, Denies polydipsia and Denies polyuria Aller/Immun Denies wheezing Physical exam (Primary Care) Vital Signs: Last Vital Signs Temp 97.7 F 02/18/23 10:53 Pulse 79 02/18/23 10:53 Resp 13 02/18/23 10:53 BP 126/70 02/18/23 10:53 Pulse Ox 99 02/18/23 10:53 Oxygen Delivery Method Room Air 02/18/23 10:53 BMI result Body Mass Index 43.2 Tobacco/Smoking Status: Tobacco use Status Tobacco use date assessed 02/18/23 02/18/23 11:05 Patient Tobacco Use Status Never used Tobacco 02/18/23 11:05 e-Cigarette/Vaping Use Never Used 02/18/23 11:05 PHQ-9: PHQ-9 Score PHQ-9: Total score 11 02/18/23 15:10 Depression Screening Interpretation: Positive Depression Screening Follow-up: Existing condition and In treatment Thrive Assessment: Date of Thrive Assessment Date Thrive assessed 02/18/23 02/18/23 11:05 Currently or been in a relationship where the following occur: no concerns reported Const Other: General: no acute distress and well developed Nutritional Appearance: well nourished Orientation/consciousness: patient oriented x3 HENMT Head is normocephalic Bilateral ear canal and TM are normal Nasal turbinates with mild erythema, no edema or discharge Oropharynx are pink and moist Sinuses are nontender with palpation No auricular or cervical lymphadenopathy Eyes General: appearance normal, both eyes and all related structures Pupils: Equal, round and reactive pupils present EOM: EOMs intact bilaterally Resp Effort & Inspection: normal respiratory effort Auscultation: clear to auscultation bilaterally Cardio Rate: regular rate Rhythm: regular rhythm Heart sounds: S1 normal heart sound present, S2 normal heart sound present, no gallops, no murmurs and no rubs GI Palpation (GI): No Abdominal aortic bruit present, Soft to palpation, nontender, No hepatosplenomegaly present and No Rebound tenderness present Auscultation: normal bowel sounds General: Yes no CVA tenderness Back/Spine/Pelvis Back: no CVA tenderness Cervical Spine: cervical ROM normal and No Cervical spine tenderness Thoracic/Lumbar Spine: thoraco-lumbar ROM normal, No pain with thoraco-lumbar ROM, No thoracic spinal tenderness and No lumbar spinal tenderness Extrem General: Yes normal to inspection, No edema and No calf tenderness Skin General: warm and dry. Normal skin color. Normal skin turgor Lesions: no lesions Rashes: no rashes Trauma: no lacerations or abrasions Wounds: no wounds Nails: normal Neuro General: patient oriented x3, gait normal and no focal neuro deficit Cranial nerves: Yes Equal, round and reactive pupils present Cognition (Neuro): normal cognition Gait exam (Neuro): Normal gait present Sensory Exam: No Sensory deficit (Neuro) Psych Appearance: grossly normal Affect: normal affect Attitude: cooperative Thought process: Normal thought process present Assessment and Plan Assessment & Plan (1) Nasal congestion: Code(s): R09.81 - Nasal congestion Plan: Reports congestion with occasional nosebleed for past 10 months. He states that he has a deviated nasal septum Nasal turbinates with mild erythema, no edema or discharge Likely allergies Humid environment may also be a contributing factor Flonase and cetirizine as prescribed May use dehumidifier Referred to ENT Follow-up in 1 month for an extended physical exam Return sooner with worsening or new symptoms Verbalized understanding and agreed with treatment plan (2) Allergic rhinitis: Code(s): J30.9 - Allergic rhinitis, unspecified Plan: As above (3) Transaminitis: Code(s): R74.01 - Elevation of levels of liver transaminase levels Plan: His last blood work was in July. AST and ALT, 55 and 137 respectively. 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 Will review results and make changes to his care plan as needed Verbalized understanding and agreed with treatment plan (4) Anxiety: Code(s): F41.9 - Anxiety disorder, unspecified Plan: PHQ-9 and YARIEL-7 scores revealed moderate depression and severe anxiety respectively Continue with current treatment regimen Routine exercise encouraged Follow-up with worsening or new symptoms Verbalized understanding and agreed with treatment plan (5) Depression: Code(s): F32.A - Depression, unspecified Plan: As above (6) Morbid obesity due to excess calories: Code(s): E66.01 - Morbid (severe) obesity due to excess calories Plan: Followed by [facility] weight management Orders: Orders US abdomen limited Today R74.01 - Elevation of levels of liver transaminase levels Referrals Ear/Nose/Throat Referral R09.81 - Nasal congestion Medications: New fluticasone propionate 50 mcg/actuation (Flonase Allergy Relief) administer into each nostril 1 spray intranasal BID 16 grams 2RF cetirizine (Zyrtec) 10 mg PO DAILY 30 tabs 3RF 30 days Coding Level of Care Code Est Pt Level 4 (26439) Diagnoses Nasal congestion R09.81 Allergic rhinitis J30.9 Transaminitis R74.01 Anxiety F41.9 Depression F32.A Morbid obesity due to excess calories E66.01 Additional Codes YARIEL-7 Assessment Billing - YARIEL-7 Assessment Tool: YARIEL-7 Assessment 33101 ([id number])
== END 2023-02-18 12:05 | disposition home or self-care (01) ==
PROVIDERS: PCP Hospitalist; Visit Provider Nurse Practitioner Family
DX: R09.81 Nasal congestion (principal); F32.A Depression, unspecified; E66.01 Morbid (severe) obesity due to excess calories; Z68.41 Body mass index [BMI] 40.0-44.9, adult; K21.9 Gastro-esophageal reflux disease without esophagitis; J30.9 Allergic rhinitis, unspecified; R74.01 Elevation of levels of liver transaminase levels; F41.9 Anxiety disorder, unspecified
CPT/HCPCS: 96127; 99214

== ENCOUNTER 2023-03-17 11:35 | Outpatient (AMB) | payer OTHER, SELFPAY ==
--- NOTE | 2023-03-17 11:40 | MHC.PC.OV ---
Vital Signs 03/17/23 11:42 Height 5 ft 7 in Weight 289 lb 7 oz BMI 45.3 BP 122/74 Blood Pressure Location Rt brachial Position Sitting Respiration 13 Pulse 114 H Pulse Source Pulse Oximeter Temp 97.9 F Temp Source Temporal Artery Scan Pulse Oximetry (%) 99 Intake Visit Reasons: follow up return to work Intake Note: Patient needs a note stating that he was out from the 02/14 to 02/18 due to his nose bleeds. Patient would also need a note from the 02/24 to 02/26 due to him coming in contact with covid. Performance Management Consultant Required: No Accompanied by: Self / Same As Patient Allergies tree nut [TREE NUT] Allergy (Severe, Verified 03/17/23 12:19) THOAT SWELLING Medication List - Last Reconciled 03/17/23 by Oracio Nicole CNP cetirizine (Zyrtec) 10 mg PO DAILY 30 days fluoxetine 20 mg PO DAILY omeprazole 40 mg PO DAILY oxcarbazepine 600 mg (2 x 300 mg) PO BID 30 days Tobacco use date assessed: 02/18/23 Dental Screening Dental Screen Date: 03/17/23 Did you have a dental visit in the last 12 months?: No Did you have a dental problem in the last 6 months where you did not have access to dental care?: No Was dental information given to patient?: Patient has dentist HPI HPI Comments History of Present Illness Details 22-year-old male presents with request for retroactive work excuse letters He notes that he was out of work between 02/14/2023 and 02/18/2023 due to nosebleeds and between 02/24/2023 and 02/26/2023 for positive COVID contact. He notes that he went to [facility] ED for nosebleeds, was not evaluated, but was given work notes. He states that he was advised to follow-up with his PCP. He notes that his employer contacted the ED and was informed the patient was not seen on the dates noted in the work excuse letters. He states that he is on the verge of losing his job if he does not provide the required documentation to his employer. He offers no complaints and denies any symptoms at this time. His last office visit was on 02/18/2023 for transfer of care from his previous provider who is no longer with the practice. He reported nasal congestion intermittent nosebleeds. Treatment plan including Flonase and ENT referral discussed. He was advised to follow-up in a month for an extended physical exam. He notes that he has not scheduled appointment with ENT. [facility] Medical History H. pylori infection Anxiety Depression Gynecomastia Seizure Muscle degeneration Heart murmur Enlarged heart Surgical History No pertinent past surgical history Family History Father Epilepsy Brother Epilepsy Sister Epilepsy Social History Housing: Apartment Patient Tobacco Use Status: Never used Tobacco e-Cigarette/Vaping Use: Never Used service: No Current occupational status: employed Current occupation: [employer] Cognitive needs: No Hearing needs: No Vision needs: No Questionnaire Thrive Questionnaire Date Thrive assessed: 02/18/23 YARIEL-7 AMB Questionnaire YARIEL-7 Date YARIEL - 7 assessed: 02/18/23 Source: Developed by Drs. Herbie García, Nelli Ewing, Mohsen Fregoso and colleagues, with an educational michael from [email or web address]. Review of Systems Const Details: Const Denies chills, Denies fatigue, Denies fever(s), Denies headache(s) and Denies weakness ENT Denies dizziness and Denies headache(s) Card Denies chest pain, Denies lightheadedness, Denies dyspnea and Denies other (Palpitations) Resp Denies cough, Denies dyspnea, Denies wheezing and Denies other ( shortness of breath) GI Denies abdominal pain, Denies melena, Denies hematochezia, Denies change in bowel habits, Denies dyspepsia and Denies nausea Denies hematuria and Denies dysuria Musc Denies abnormal gait, Denies myalgias, Denies arthralgias, Denies numbness and Denies tingling Skin/Breast Denies rash, Denies unusual bruising and Denies wounds Neuro Denies abnormal gait, Denies dizziness, Denies headache(s), Denies memory loss, Denies numbness, Denies Sensory deficit (Neuro), Denies tingling and Denies weakness Psych Denies anxiety, Denies depression, Denies memory loss Endo Denies cold intolerance, Denies fatigue, Denies heat intolerance, Denies polydipsia and Denies polyuria Aller/Immun Denies wheezing Physical exam (Primary Care) Vital Signs: Last Vital Signs Temp 97.9 F 03/17/23 11:42 Pulse 114 H 03/17/23 11:42 Resp 13 03/17/23 11:42 BP 122/74 03/17/23 11:42 Pulse Ox 99 03/17/23 11:42 BMI result Body Mass Index 45.3 Tobacco/Smoking Status: Tobacco use Status Tobacco use date assessed 02/18/23 03/17/23 11:52 Patient Tobacco Use Status Never used Tobacco 03/17/23 11:52 e-Cigarette/Vaping Use Never Used 03/17/23 11:52 Thrive Assessment: Date of Thrive Assessment Date Thrive assessed 02/18/23 03/17/23 11:52 Const Other: General: no acute distress and well developed Nutritional Appearance: well nourished Orientation/consciousness: patient oriented x3 HENMT Head: Yes normocephalic and Yes atraumatic Eyes General: appearance normal, both eyes and all related structures Pupils: Equal, round and reactive pupils present EOM: EOMs intact bilaterally Resp Effort & Inspection: normal respiratory effort Auscultation: clear to auscultation bilaterally Cardio Rate: regular rate Rhythm: regular rhythm Heart sounds: S1 normal heart sound present, S2 normal heart sound present, no gallops, no murmurs and no rubs GI Palpation (GI): No Abdominal aortic bruit present, Soft to palpation, nontender, No hepatosplenomegaly present and No Rebound tenderness present Auscultation: normal bowel sounds General: Yes no CVA tenderness Back/Spine/Pelvis Back: no CVA tenderness Cervical Spine: cervical ROM normal and No Cervical spine tenderness Thoracic/Lumbar Spine: thoraco-lumbar ROM normal, No pain with thoraco-lumbar ROM, No thoracic spinal tenderness and No lumbar spinal tenderness Extrem General: Yes normal to inspection, No edema and No calf tenderness Skin General: warm and dry. Normal skin color. Normal skin turgor Lesions: no lesions Rashes: no rashes Trauma: no lacerations or abrasions Wounds: no wounds Nails: normal Neuro General: patient oriented x3, gait normal and no focal neuro deficit Cranial nerves: Yes Equal, round and reactive pupils present Cognition (Neuro): normal cognition Gait exam (Neuro): Normal gait present Sensory Exam: No Sensory deficit (Neuro) Psych Appearance: grossly normal Affect: normal affect Attitude: cooperative Thought process: Normal thought process present Assessment and Plan Assessment & Plan (1) Encounter to obtain excuse from work: Code(s): Z02.89 - Encounter for other administrative examinations Plan: Patient requests an excuse letter from work between 02/14/2023 and 02/18/2023 due to nosebleeds and between 02/24/2023 and 02/26/2023 for positive COVID contact The MA called the patient's employer as authorized by the patient. She informed the MA and that the patient produced 2 work excuse letter from [facility] that were deemed fraudulent. She also informed the MA that [facility] ED was contacted and revealed the patient was never seen on the dates listed on the letters The patient insisted that the letters for produce by [facility] ED. He presented one of the letters which notes that the patient was admitted at the hospital, contrary to the patient stating that he was given the letters but not evaluated. No provider name or signature is listed on the letter He was given a letter today stating that he was seen on 02/18/2023 for transfer of care and that nosebleeds were discussed He was advised to seek medical evaluation before taking time of work for proper evaluation and documentation He verbalized understanding and agreed with the plan Coding Level of Care Code Est Pt Level 3 (37536) Diagnoses Encounter to obtain excuse from work Z02.89
[2023-03-17 11:42] VITALS: BP 122/74; PULSE 114; RESP 13; TEMP 36.6; O2SAT 99; BMI 45.3
== END 2023-03-17 12:50 | disposition home or self-care (01) ==
PROVIDERS: PCP Hospitalist; Visit Provider Nurse Practitioner Family
DX: R04.0 Epistaxis (principal); Z02.89 Encounter for other administrative examinations
CPT/HCPCS: 99213

== ENCOUNTER 2023-03-26 12:11 | Emergency (ER) | payer OTHER, SELFPAY ==
--- NOTE | ~2023-03-26 | CT_ITS ---
EXAMINATION: CT ABDOMEN AND PELVIS WITHOUT CONTRAST CLINICAL INFORMATION: Abdominal wall hernia COMPARISON: None available. TECHNIQUE: Multidetector volumetric imaging was performed from the superior aspect of the liver through the pubic symphysis. Sagittal and coronal reformatted images were obtained on the technologist's workstation. This CT examination was performed using dose optimization techniques as appropriate, variously including the following: *Automated exposure control *Adjustment of mA and/or kV according to patient size (this includes techniques or standardized protocols for targeted exams where dose is matched to indication/reason for exam; i.e. extremities or head) *Use of iterative reconstruction technique DLP: 927 mGy-cm FINDINGS: LUNG BASES: The visualized lung bases are unremarkable. LIVER, GALLBLADDER, AND BILIARY TREE: Diffuse low attenuation of liver parenchyma due to fatty change. No focal liver lesion or intrahepatic bile duct dilatation. The right lower liver measures 20 cm. The gallbladder is unremarkable with no evidence of radiopaque gallstones, gallbladder wall thickening, or obvious pericholecystic inflammatory changes. PANCREAS: Unremarkable. SPLEEN: Unremarkable. ADRENAL GLANDS: Unremarkable. KIDNEYS AND URETERS: The kidneys are normal in size, shape, and attenuation. No hydronephrosis, hydroureter, or calculi seen. No perinephric stranding. BLADDER: Unremarkable. GASTROINTESTINAL TRACT: The small and large bowel are unremarkable. The appendix is unremarkable. ABDOMINAL WALL: No significant hernia is appreciated. LYMPH NODES: Normal. VASCULAR: Unremarkable. PELVIC VISCERA: Unremarkable. OSSEOUS STRUCTURES: Unremarkable. CT/CT abdomen pelvis wo IV con IMPRESSION: 1. No acute abnormality CT scan abdomen pelvis. 2. No significant abdominal wall hernia. 3. Diffuse fatty change of liver. Fleischner guidelines were followed.
[2023-03-26 12:56] VITALS: BP 121/65; PULSE 80; RESP 18; TEMP 36.6; O2SAT 97; BMI 41.0
--- NOTE | 2023-03-26 12:56 | ED_ITS ---
HPI - General Adult General Chief complaint: Abdominal Pain Stated complaint: naval pain Time Seen by Provider: 03/26/23 14:41 Source: patient, RN notes reviewed and old records reviewed Mode of arrival: ambulatory History of Present Illness HPI narrative: 22-year-old male with a past medical history of anxiety, depression, gynecomastia, seizures, heart murmur, presenting to the ED complaining of periumbilical abdominal pain x3 days and feeling palpable lump s/p bending over at work today. Reports pain worse with coughing. Denies fever/chills, nausea/vomiting, constipation/diarrhea Related Data Home Medications Medication Instructions Recorded Confirmed fluoxetine 20 mg capsule 20 mg PO DAILY 06/05/22 03/17/23 Previous Rx's Medication Instructions Recorded omeprazole 40 mg capsule,delayed 40 mg PO DAILY #14 caps 09/01/22 release oxcarbazepine 300 mg tablet 600 mg (2 x 300 mg) PO BID 30 days 09/01/22 #120 tabs cetirizine 10 mg tablet (Zyrtec) 10 mg PO DAILY 30 days #30 tabs 02/18/23 Allergies Allergy/AdvReac Type Severity Reaction Status Date / Time tree nut [TREE NUT] Allergy Severe THOAT Verified 03/17/23 12:19 SWELLING Review of Systems 2 Review of Systems: Constitutional: No Fever, No Chills ENT/Mouth: No Ear Pain, No Nasal Congestion, No sore throat, No Rhinorrhea, No Swallowing Difficulty Cardiovascular: No Chest Pain, No SOB Respiratory: No Cough, No Sputum Gastrointestinal: No Nausea, No Vomiting, No Diarrhea, No Constipation, +Abdominal pain Genitourinary: No Dysuria, No Urinary Frequency, No Hematuria, No Urinary Incontinence/retention, No Flank Pain Musculoskeletal: No joint pain, No Myalgias, No Joint Swelling Skin: No Skin Lesions, No rash Neuro: No Weakness Yes all other systems are reviewed and are negative Constitutional: Constitutional: Reports as per [facility] Past Medical History Attestation statement: The following information was validated with the patient. Source: old records reviewed Medical History H. pylori infection Anxiety Depression Gynecomastia Seizure Muscle degeneration Heart murmur Enlarged heart Surgical History No pertinent past surgical history Family History Family History Father Epilepsy Brother Epilepsy Sister Epilepsy Social History Social History Housing: Apartment Patient Tobacco Use Status: Never used Tobacco Smoked in Last 30 Days: No e-Cigarette/Vaping Use: Never Used Use of substances other than those prescribed or required for medical reasons: No Advance Directives: No Advance Directives Information Provided: Yes service: No Current occupational status: employed Current occupation: [employer] Cognitive needs: No Hearing needs: No Vision needs: No Physical Exam ED Vital Signs: Vital Signs - 24 hr 03/26/23 12:56 03/26/23 14:40 03/26/23 15:34 Temperature 97.9 F 98.4 F 98.1 F Pulse Rate 80 86 89 Respiratory Rate 18 16 20 Blood Pressure 121/65 135/76 126/75 Pulse Oximetry 97 98 98 Oxygen Delivery Method Room Air Room Air Room Air BMI result Body Mass Index 41.0 Const General: cooperative, healthy appearing and no acute distress Orientation/consciousness: patient oriented x3 Limitations: no limitations HENMT Head: Yes normal to inspection and Yes atraumatic Ears: hearing grossly normal bilaterally General nose exam: Normal external nose present Face and sinus: Yes normal facial exam Eyes General: appearance normal, both eyes and all related structures EOM: EOMs intact bilaterally Neck Neck: Yes normal visual inspection and Yes no meningeal signs Resp Effort & Inspection: normal respiratory effort and no respiratory distress Cardio Rate: regular rate GI Inspection: Yes normal to inspection, No distended and Yes obesity Palpation (GI): Soft to palpation, Tenderness to palpation present (GI) periumbilically; with no rebound tenderness, no guarding and not rigid General: Yes no CVA tenderness Back/Spine/Pelvis Back: no CVA tenderness Skin Rashes: no rashes Wounds: no wounds Neuro General: patient oriented x3, tone normal and no meningeal signs Cranial nerves: Yes CN's II-XII intact bilaterally Gait exam (Neuro): Normal gait present Extrem General: Yes normal to inspection Course Course Course Narrative: RME:?22 yo male here hx of anxiety, depression, gerd w/ ambominal pain/ buldge on waking 3 days ago. feels bump in his umbilicus with pain worse on coughing, moving, bending over. denies lifting anything heavy. denies fever. + obese abdomen, no palpable hernia on exam plan for basic labs, CT Full HPI, ROS and PE to be performed by the primary ED provider. -1632--no leukocytosis. Lactic acid WNL. Acute on chronically elevated AST/ALT. UA negative CT abdomen pelvis wo IV con IMPRESSION: 1. No acute abnormality CT scan abdomen pelvis. 2. No significant abdominal wall hernia. 3. Diffuse fatty change of liver. Fleischner guidelines were followed. Reports symptomatic improvement. Sitting comfortably playing on cell phone. Results discussed with patient including worrisome signs and symptoms and strict return precautions, and when to return to the emergency department. They verbalized understanding and feel safe for discharge at this time. Medical Decision Making Medical Decision Making [facility] Narrative: 22-year-old male with a past medical history of anxiety, depression, gynecomastia, seizures, heart murmur, presenting to the ED complaining of periumbilical abdominal pain x3 days and feeling palpable lump s/p bending over at work today. On exam vital signs stable, NAD, nontoxic appearing, abdomen soft with periumbilical tenderness, no appreciable palpable lump/hernia. No erythema/warmth. Concern for hernia, incarcerated versus strangulated vs colitis/diverticulitis or appendicitis. Lower suspicion for UTI/renal stone, cholecystitis/lithiasis or pancreatitis Plan: Labs, UA, CT AP Please refer to course for remaining clinical decision making, interpretation of labs/imaging results, and discussions with consultants and/or family members. Differential Diagnosis Differential Diagnoses: The differential diagnosis associated with the presentation includes As above Admission/Observation Consideration of admission/observation: Escalation of care including admission/observation considered Lab Data [facility] Lab Attestation statement: I reviewed the patient's lab results. 03/26/23 13:06 03/26/23 13:06 Labs: Lab Results 03/26/23 03/26/23 03/26/23 Range/Units 13:06 15:22 15:34 WBC 8.5 (4.8-10.8) X10*3/uL RBC 4.92 (4.60-5.80) X10*6/uL Hgb 14.3 (14.0-18.0) g/dl Hct 43.3 (42.0-52.0) % MCV 88.0 (80.0-98.0) fL MCH 29.1 (27.0-33.0) pg MCHC 33.0 (31.0-36.0) g/dl RDW 13.5 (11.0-16.0) % Plt Count 388 (160-400) X10*3/uL MPV 9.2 L (9.4-12.4) fL Immature Gran % (Auto) 0.4 (0.0-0.4) % Neut % (Auto) 64.7 (45-73) % Lymph % (Auto) 26.2 (20-40) % [place] % (Auto) 6.6 (2-11) % Eos % (Auto) 1.6 (0-4) % Baso % (Auto) 0.5 (0-2) % Lymph # (Auto) 2.2 (1.2-4.9) X10*3/uL [place] # (Auto) 0.6 (0.1-1.2) X10*3/uL Eos # (Auto) 0.1 (0.0-0.4) X10*3/uL Baso # (Auto) 0.0 (0.0-0.2) X10*3/uL Abs Immat Gran (auto) 0.03 (0.00-0.03) X10*3/uL Absolute Neuts (auto) 5.5 (2.0-8.3) x10*3/uL Absolute Nucleated RBC 0.000 (0.0-0.012) X10*3/uL Nucleated RBC % (auto) 0.0 (0.0-0.2) /100WBC Sodium 140 (135-145) mmol/L Potassium 4.3 (3.3-5.1) mmol/L Chloride 105 (96-108) mmol/L Carbon Dioxide 29 (22-29) mmol/L Anion Gap 10 L (12-20) BUN 14 (9-16) mg/dL Creatinine 0.76 (0.5-1.4) mg/dL Estim Creat Clear Calc 184.8 Estimated GFR > 60 Random Glucose 96 (60-115) mg/dL Lactic Acid 1.7 (0.5-2.0) mmol/L Calcium 9.5 (8.4-10.2) mg/dL Magnesium 1.8 (1.6-2.6) mg/dL Total Bilirubin 0.5 (0.0-1.0) mg/dL Direct Bilirubin 0.2 (0.0-0.5) mg/dL AST 93 H (5-37) U/L ALT 246 H (0-40) U/L Alkaline Phosphatase 54 (39-117) U/L Total Protein 8.2 H (6.5-8.0) g/dL Albumin 4.4 (3.5-5.0) g/dL Lipase 17 (8-78) U/L Urine Color Yellow Urine Appearance Clear Urine pH 6.0 (5.0-9.0) Ur Specific [place] 1.025 (1.005-1.025) Urine Protein Negative (Neg-Trace) mg/dL Urine Glucose (UA) Negative (Negative) mg/dL Urine Ketones Negative (Negative) mg/dL Urine Blood Negative (Negative) Urine Nitrite Negative (Negative) Ur Leukocyte Esterase Negative (Negative) Independent Interpretation I performed an independent interpretation of an: CT Scan Radiology Impression Discussion of test interpretation with radiology: I have reviewed the radiologist's reading. External Record Review External record reviewed: Inpatient record, Office record, Outpatient record, Prior outpatient labs, Prior outpatient radiology, Primary care record and Outside ED record Tests considered The following testing was considered but not selected: As above Prescription Management I considered prescription management with: Pain Medication Discharge Plan Discharge Clinical Impression: Abdominal pain, periumbilical Patient Disposition: Home, Self-Care Instructions: Abdominal Pain (ED) Additional Instructions: Your blood work and CT scan were reassuring Place follow-up with her doctor as well as General surgery. It is possible you have a hernia that was not appreciated Please avoid straining, heavy lifting, bending If pain persists or worsens/becomes severe, he persistent nausea/vomiting or constipation return to the ED Prescriptions: No Action omeprazole 40 mg capsule,delayed release(DR/EC) 40 mg PO DAILY Qty: 14 0RF cetirizine [Zyrtec] 10 mg tablet 10 mg PO DAILY 30 Days Qty: 30 3RF fluoxetine 20 mg capsule 20 mg PO DAILY oxcarbazepine 300 mg tablet 600 mg PO BID 30 Days Qty: 120 1RF [place] [facility] [place] Group] Oracio Nicole [Primary Care Provider] - 3 days
[2023-03-26 13:10] LABS: MANUAL DIFF FLAG NO
[2023-03-26 13:14] LABS: Basophils Percent Auto 0.5 % (0-2); Eosinophils Absolute Auto 0.1 X10*3/uL (0.0-0.4); Eosinophils Percent Auto 1.6 % (0-4); Hematocrit 43.3 % (42.0-52.0); Hemoglobin 14.3 g/dl (14.0-18.0); Imm Gran Abs Auto 0.03 X10*3/uL (0.00-0.03); Imm Gran Pct Auto 0.4 % (0.0-0.4); Lymphocytes Absolute Auto 2.2 X10*3/uL (1.2-4.9); Lymphocytes Percent Auto 26.2 % (20-40); Mean Corpuscular Hemoglobin 29.1 pg (27.0-33.0); Mean Platelet Volume 9.2 fL (9.4-12.4); Monocytes Absolute Auto 0.6 X10*3/uL (0.1-1.2); Monocytes Percent Auto 6.6 % (2-11); Neutrophils Absolute Auto 5.5 x10*3/uL (2.0-8.3); Neutrophils Percent Auto 64.7 % (45-73); Platelet Count 388 X10*3/uL (160-400); Red Blood Count 4.92 X10*6/uL (4.60-5.80); Red Cell Distribution Width 13.5 % (11.0-16.0); White Blood Count 8.5 X10*3/uL (4.8-10.8)
[2023-03-26 13:27] LABS: Anion Gap 10 (12-20); Blood Urea Nitrogen 14 mg/dL (9-16); Calcium 9.5 mg/dL (8.4-10.2); Carbon Dioxide 29 mmol/L (22-29); Chloride 105 mmol/L (96-108); Creatinine Clr Calc Pharmacy 184.8; Estimated Glomerular Filt Rate > 60; Glucose Random 96 mg/dL (60-115); Magnesium 1.8 mg/dL (1.6-2.6); Potassium 4.3 mmol/L (3.3-5.1); Sodium 140 mmol/L (135-145)
[2023-03-26 14:40] VITALS: BP 135/76; PULSE 86; RESP 16; TEMP 36.9; O2SAT 98
[2023-03-26 15:11] LABS: Alanine Aminotransferase 246 U/L (0-40); Albumin Level 4.4 g/dL (3.5-5.0); Alkaline Phosphatase 54 U/L (39-117); Aspartate Amino Transferase 93 U/L (5-37); Bilirubin Direct 0.2 mg/dL (0.0-0.5); Bilirubin Total 0.5 mg/dL (0.0-1.0); Lipase 17 U/L (8-78); Total Protein 8.2 g/dL (6.5-8.0)
[2023-03-26 15:34] VITALS: BP 126/75; PULSE 89; RESP 20; TEMP 36.7; O2SAT 98
[2023-03-26 15:48] LABS: Appearance Urine Clear; Color Urine Yellow; Glucose Urine UA Negative (Negative); Leukocyte Esterase Urine Negative (Negative); Nitrite Urine Negative (Negative); Specific Gravity - Urine 1.025 (1.005-1.025); Urine Blood Negative (Negative); Urine Ketones Negative (Negative); Urine Protein Negative (Neg-Trace)
[2023-03-26 15:51] LABS: Lactic Acid 1.7 mmol/L (0.5-2.0)
[2023-03-26] MEDS: Ibuprofen 600 MG TABLET PO (16:56)
== END 2023-03-26 17:00 | disposition home or self-care (01) ==
PROVIDERS: Physician Assistant; Physician Assistant Medical; Emergency Provider Internal Medicine
DX: R19.06 Epigastric swelling, mass or lump (principal); R10.33 Periumbilical pain; Z79.899 Other long term (current) drug therapy
CPT/HCPCS: 36415; 74176; 80048; 80076; 81003; 83605; 83690; 83735; 85025; 99284

== ENCOUNTER 2023-11-03 18:40 | Emergency (ER) | payer SELFPAY ==
--- NOTE | ~2023-11-03 | CT_ITS ---
EXAMINATION: CT ABDOMEN AND PELVIS WITHOUT CONTRAST CLINICAL INFORMATION: Umbilical hernia COMPARISON: CT abdomen pelvis 03/26/2023 TECHNIQUE: Multidetector volumetric imaging was performed from the superior aspect of the liver through the pubic symphysis. Sagittal and coronal reformatted images were obtained on the technologist's workstation. This CT examination was performed using dose optimization techniques as appropriate, variously including the following: *Automated exposure control *Adjustment of mA and/or kV according to patient size (this includes techniques or standardized protocols for targeted exams where dose is matched to indication/reason for exam; i.e. extremities or head) *Use of iterative reconstruction technique DLP: 1001 mGy-cm FINDINGS: LUNG BASES: The visualized lung bases are unremarkable. LIVER, GALLBLADDER, AND BILIARY TREE: The liver is enlarged measuring 20 cm in greatest dimension with decreased attenuation consistent with hepatic steatosis. Multiple areas of focal fatty sparing are seen. No concerning solid focal hepatic lesion or biliary ductal dilatation is present. The gallbladder is unremarkable with no evidence of radiopaque gallstones, gallbladder wall thickening, or obvious pericholecystic inflammatory changes. PANCREAS: Unremarkable. SPLEEN: Spleen is enlarged at 13 cm in cephalocaudad dimension. ADRENAL GLANDS: Unremarkable. KIDNEYS AND URETERS: The kidneys are normal in size, shape, and attenuation. No hydronephrosis, hydroureter, or calculi seen. No perinephric stranding. BLADDER: Unremarkable. GASTROINTESTINAL TRACT: The small and large bowel are unremarkable. The appendix is unremarkable. ABDOMINAL WALL: There is a tiny periumbilical hernia seen containing only fat. There is mild diastases of the rectus muscles above the umbilicus. There is a tiny left inguinal hernia seen containing only fat. LYMPH NODES: No retroperitoneal lymphadenopathy. VASCULAR: Unremarkable. PELVIC VISCERA: The prostate and seminal vesicles are unremarkable. OSSEOUS STRUCTURES: Unremarkable. CT/CT abdomen pelvis wo IV con IMPRESSION: 1. Enlarged fatty liver with mild splenomegaly. 2. No significant hernia is present. There is a tiny periumbilical and left inguinal hernias containing only fat. Fleischner guidelines were followed.
[2023-11-03 19:00] VITALS: BP 137/85; PULSE 77; RESP 16; TEMP 36.4; O2SAT 97; BMI 44.4
--- NOTE | 2023-11-03 19:01 | ED.GENADULT ---
HPI - General Adult General Chief complaint: Abdominal Pain Stated complaint: ?Umbilical hernia Time Seen by Provider: 11/03/23 21:30 Source: patient Mode of arrival: ambulatory Limitations: no limitations History of Present Illness HPI narrative: Patient is a 23-year-old male presents emergency department for evaluation of concern for periumbilical abdominal pain. He states in February of last year he was evaluated for this pain was found to have an umbilical hernia. States he did not follow-up with General surgery. Last week he was experiencing quite a bit of vomiting and noticed an increase in his pain. Today while at work he noticed a drop blood come from his umbilicus. He denies any redness swelling or skin color changes surrounding the area. He is moving his bowels normally. He is without nausea or vomiting at this time. He is eating and drinking normally. Related Data Home Medications ?Medication ?Instructions ?Recorded ?Confirmed fluoxetine 20 mg capsule 20 mg PO DAILY 06/05/22 03/17/23 Previous Rx's ?Medication ?Instructions ?Recorded omeprazole 40 mg capsule,delayed 40 mg PO DAILY #14 caps 09/01/22 release oxcarbazepine 300 mg tablet 600 mg (2 x 300 mg) PO BID 30 days 09/01/22 #120 tabs cetirizine 10 mg tablet (Zyrtec) 10 mg PO DAILY 30 days #30 tabs 02/18/23 mupirocin 2 % topical ointment 1 appl topical BID #15 grams 11/03/23 Allergies Allergy/AdvReac Type Severity Reaction Status Date / Time tree nut [TREE NUT] Allergy Severe THOAT Verified 11/03/23 19:03 SWELLING Review of Systems Review of Systems: Yes all other systems are reviewed and are negative FORMERLY [facility], [facility] Past Medical History Attestation statement: The following information was validated with the patient. Source: old records reviewed Medical History H. pylori infection Anxiety Depression Gynecomastia Seizure Muscle degeneration Heart murmur Enlarged heart Surgical History No pertinent past surgical history Family History Family History Father Epilepsy Brother Epilepsy Sister Epilepsy Social History Social History Housing: Apartment Patient Tobacco Use Status: Never used Tobacco e-Cigarette/Vaping Use: Never Used Advance Directives: No Advance Directives Information Provided: No Do you have a plan to hurt others: No Plan service: No Current occupational status: employed Current occupation: [employer] Cognitive needs: No Hearing needs: No Vision needs: No Physical Exam ED Vital Signs: Vital Signs - 24 hr 11/03/23 19:00 Temperature 97.6 F Pulse Rate 77 Respiratory Rate 16 Blood Pressure 137/85 Pulse Oximetry 97 Oxygen Delivery Method Room Air BMI result Body Mass Index 44.4 Appearance: Alert.?Oriented to person, place and time. No acute distress.?Normal affect. Eyes: Pupils equal, round and reactive to light.? ENT: Pharynx normal.?? Neck: Normal inspection.? Neck supple.?? CVS: Heart sounds normal. Normal heart rate and rhythm.? Pulses normal.?? Respiratory: No respiratory distress.? Lung sounds clear to auscultation bilaterally?? Abdomen: Soft with mild periumbilical tenderness upon palpation. No appreciated hernia. The skin deep within the umbilicus no active bleeding.. Normoactive bowel sounds. No pulsatile mass.?? Skin: Skin warm and dry.? Normal skin color.? Extremities: No lower extremity edema.? Neuro: Moves all extremities spontaneously. Sensation intact bilaterally. Ambulates with normal steady gait. Course Course Course Narrative: This is a Rapid Medical Examination (RME) performed by Lindsey Franco PA-C in triage. Full HPI, ROS, assessment and treatment plan per primary provider in the Main ED. 23 yo male hx of anxiety, depression, seizure here for eval of periumbilcal abd pain x today while at work. seen in 02/2023 for same. states he was diagnosed w/ umbilical hernia. followed up with general surgery however they did not reach back out to him. + ttp over umbilicus. no palpable hernia. on review of chart- no identifiable hernia seen on CT in February. no general surgery note. Plan: labs, Ct scan Medical Decision Making Medical Decision Making MDM Narrative: Patient is a 23-year-old male who presents emergency department for evaluation of periumbilical pain and small amount of bloody drainage from the umbilicus as per HPI. Overall he appears well, nontoxic, afebrile. Umbilicus/abdomen without periumbilical skin changes, scant amount of excoriation deep within the umbilicus concerning for superficial infection. Discussed cleansing the area, thorough drying and application of mupirocin. No appreciable periumbilical hernia on examination, CT of the abdomen and pelvis was obtained prior to my assumption of care revealing a small periumbilical fat containing hernia without evidence of obstruction. No rigidity or guarding he is tolerating oral intake. I advised that he may follow-up outpatient with General surgery should he wish to have evaluation for potential surgical repair, though not absolutely clinically indicated at this time. Discussed conservative treatment measures. All questions answered. Stable for discharge Differential Diagnosis Differential Diagnoses: The differential diagnosis associated with the presentation includes (Cellulitis, periumbilical hernia, doubt incarceration or strangulation) Admission/Observation Consideration of admission/observation: Escalation of care including admission/observation considered Lab Data MDM Lab Attestation statement: I reviewed the patient's lab results. CBC is without leukocytosis anemia or thrombocytopenia. No electrolyte derangement. No LINH. 11/03/23 19:33 11/03/23 19:33 Labs: Lab Results 11/03/23 Range/Units 19:33 WBC 8.4 (4.8-10.8) X10*3/uL RBC 4.85 (4.60-5.80) X10*6/uL Hgb 14.3 (14.0-18.0) g/dl Hct 42.0 (42.0-52.0) % MCV 86.6 (80.0-98.0) fL MCH 29.5 (27.0-33.0) pg MCHC 34.0 (31.0-36.0) g/dl RDW 13.1 (11.0-16.0) % Plt Count 373 (160-400) X10*3/uL MPV 9.2 L (9.4-12.4) fL Immature Gran % (Auto) 0.2 (0.0-0.4) % Neut % (Auto) 66.9 (45-73) % Lymph % (Auto) 25.7 (20-40) % [place] % (Auto) 5.7 (2-11) % Eos % (Auto) 1.1 (0-4) % Baso % (Auto) 0.4 (0-2) % Lymph # (Auto) 2.2 (1.2-4.9) X10*3/uL [place] # (Auto) 0.5 (0.1-1.2) X10*3/uL Eos # (Auto) 0.1 (0.0-0.4) X10*3/uL Baso # (Auto) 0.0 (0.0-0.2) X10*3/uL Abs Immat Gran (auto) 0.02 (0.00-0.03) X10*3/uL Absolute Neuts (auto) 5.7 (2.0-8.3) x10*3/uL Absolute Nucleated RBC 0.000 (0.0-0.012) X10*3/uL Nucleated RBC % (auto) 0.0 (0.0-0.2) /100WBC Sodium 143 (135-145) mmol/L Potassium 3.7 (3.3-5.1) mmol/L Chloride 106 (96-108) mmol/L Carbon Dioxide 26 (22-29) mmol/L Anion Gap 15 (12-20) BUN 14 (9-16) mg/dL Creatinine 0.74 (0.5-1.4) mg/dL Estim Creat Clear Calc 196.6 Estimated GFR > 60 Random Glucose 105 (60-115) mg/dL Calcium 9.5 (8.4-10.2) mg/dL Magnesium 1.7 (1.6-2.6) mg/dL Total Bilirubin 0.4 (0.0-1.0) mg/dL AST 97 H (5-37) U/L ALT 208 H (0-40) U/L Alkaline Phosphatase 53 (39-117) U/L Total Protein 7.7 (6.5-8.0) g/dL Albumin 4.2 (3.5-5.0) g/dL Lipase 19 (8-78) U/L Radiology Impression Discussion of test interpretation with radiology: I have reviewed the radiologist's reading. Radiologist Impression: CT/CT abdomen pelvis wo IV con IMPRESSION: 1. Enlarged fatty liver with mild splenomegaly. 2. No significant hernia is present. There is a tiny periumbilical and left inguinal hernias containing only fat. Independent Historian Clinical information obtained from an independent historian. History obtained from or confirmed by: Spouse External Record Review External record reviewed: Outpatient record Prescription Management I considered prescription management with: Pain Medication (Acetaminophen/ibuprofen) Discharge Plan Discharge Clinical Impression: Periumbilical hernia Patient Disposition: Home, Self-Care Instructions: Umbilical Hernia (ED) Prescriptions: New mupirocin 2 % ointment 1 appl topical BID Qty: 15 0RF No Action omeprazole 40 mg capsule,delayed release(DR/EC) 40 mg PO DAILY Qty: 14 0RF cetirizine [Zyrtec] 10 mg tablet 10 mg PO DAILY 30 Days Qty: 30 3RF fluoxetine 20 mg capsule 20 mg PO DAILY oxcarbazepine 300 mg tablet 600 mg PO BID 30 Days Qty: 120 1RF Referrals: Ghulam Bailey MD [Physician] - Print Language: Gabonese
[2023-11-03 19:36] LABS: MANUAL DIFF FLAG NO
[2023-11-03 19:43] LABS: Basophils Percent Auto 0.4 % (0-2); Eosinophils Absolute Auto 0.1 X10*3/uL (0.0-0.4); Eosinophils Percent Auto 1.1 % (0-4); Hemoglobin 14.3 g/dl (14.0-18.0); Imm Gran Abs Auto 0.02 X10*3/uL (0.00-0.03); Imm Gran Pct Auto 0.2 % (0.0-0.4); Lymphocytes Absolute Auto 2.2 X10*3/uL (1.2-4.9); Lymphocytes Percent Auto 25.7 % (20-40); Mean Corpuscular Hemoglobin 29.5 pg (27.0-33.0); Mean Corpuscular Volume 86.6 fL (80.0-98.0); Mean Platelet Volume 9.2 fL (9.4-12.4); Monocytes Absolute Auto 0.5 X10*3/uL (0.1-1.2); Monocytes Percent Auto 5.7 % (2-11); Neutrophils Absolute Auto 5.7 x10*3/uL (2.0-8.3); Neutrophils Percent Auto 66.9 % (45-73); Platelet Count 373 X10*3/uL (160-400); Red Blood Count 4.85 X10*6/uL (4.60-5.80); Red Cell Distribution Width 13.1 % (11.0-16.0); White Blood Count 8.4 X10*3/uL (4.8-10.8)
[2023-11-03 19:54] LABS: Alanine Aminotransferase 208 U/L (0-40); Albumin Level 4.2 g/dL (3.5-5.0); Alkaline Phosphatase 53 U/L (39-117); Anion Gap 15 (12-20); Aspartate Amino Transferase 97 U/L (5-37); Bilirubin Total 0.4 mg/dL (0.0-1.0); Blood Urea Nitrogen 14 mg/dL (9-16); Calcium 9.5 mg/dL (8.4-10.2); Carbon Dioxide 26 mmol/L (22-29); Chloride 106 mmol/L (96-108); Creatinine Clr Calc Pharmacy 196.6; Estimated Glomerular Filt Rate > 60; Glucose Random 105 mg/dL (60-115); Lipase 19 U/L (8-78); Magnesium 1.7 mg/dL (1.6-2.6); Potassium 3.7 mmol/L (3.3-5.1); Sodium 143 mmol/L (135-145); Total Protein 7.7 g/dL (6.5-8.0)
[2023-11-03 22:28] VITALS: BP 115/48; PULSE 73; RESP 14; TEMP 36.9; O2SAT 97
[2023-11-03 22:31] VITALS: BP 115/48; PULSE 73; RESP 14; TEMP 36.9; O2SAT 97
== END 2023-11-03 22:33 | disposition home or self-care (01) ==
PROVIDERS: Physician Assistant Medical; Emergency Provider Internal Medicine
DX: K42.9 Umbilical hernia without obstruction or gangrene (principal); R10.33 Periumbilical pain; R01.1 Cardiac murmur, unspecified; R56.9 Unspecified convulsions
CPT/HCPCS: 36415; 74176; 80053; 83690; 83735; 85025; 99284

== ENCOUNTER 2023-12-25 15:08 | Emergency (ER) | payer OTHER, SELFPAY ==
--- NOTE | ~2023-12-25 | XR_ITS ---
EXAMINATION: XR CHEST CLINICAL INFORMATION: Cough, cough up blood COMPARISON: None available. TECHNIQUE: 2 views of the chest were obtained. FINDINGS: Lungs are hypoexpanded limiting evaluation. No focal consolidation. Streaky linear atelectasis in the left midlung. No pleural effusions or pneumothorax. The cardiac silhouette is mildly prominent which may be exaggerated by low lung volumes. No acute osseous abnormality. XR/XR chest 2V IMPRESSION: Low lung volumes limiting evaluation. Streaky linear atelectasis in the left midlung. No focal consolidation. Electronically signed by: Nino Kingston MD 12/25/2023 04:28 PM EDT
[2023-12-25 15:17] VITALS: BP 119/81; PULSE 68; RESP 20; TEMP 36.6; O2SAT 97; BMI 44.7
--- NOTE | 2023-12-25 15:17 | ED_ITS ---
HPI - URI/Sore Throat General Chief Complaint: General Medical Stated Complaint: congested, vomiting Related Data Home Medications ?Medication ?Instructions ?Recorded ?Confirmed fluoxetine 20 mg capsule 20 mg PO DAILY 06/05/22 03/17/23 Previous Rx's ?Medication ?Instructions ?Recorded omeprazole 40 mg capsule,delayed 40 mg PO DAILY #14 caps 09/01/22 release oxcarbazepine 300 mg tablet 600 mg (2 x 300 mg) PO BID 30 days 09/01/22 #120 tabs cetirizine 10 mg tablet (Zyrtec) 10 mg PO DAILY 30 days #30 tabs 02/18/23 mupirocin 2 % topical ointment 1 appl topical BID #15 grams 11/03/23 Allergies Allergy/AdvReac Type Severity Reaction Status Date / Time tree nut [TREE NUT] Allergy Severe THOAT Verified 12/25/23 15:21 SWELLING PMFSH Past Medical History Medical History H. pylori infection Anxiety Depression Gynecomastia Seizure Muscle degeneration Heart murmur Enlarged heart Surgical History No pertinent past surgical history Family History Family History Father Epilepsy Brother Epilepsy Sister Epilepsy Social History Social History Housing: Apartment Patient Tobacco Use Status: Never used Tobacco e-Cigarette/Vaping Use: Never Used Advance Directives: No Advance Directives Information Provided: No Do you have a plan to hurt others: No Plan service: No Current occupational status: employed Current occupation: [employer] Cognitive needs: No Hearing needs: No Vision needs: No Physical Exam 2 Vital Signs: Vital Signs: Last Vital Signs Temp 97.8 F 12/25/23 15:17 Pulse 68 12/25/23 15:17 Resp 20 12/25/23 15:17 BP 119/81 12/25/23 15:17 Pulse Ox 97 12/25/23 15:17 O2 Del Method Room Air 12/25/23 15:17 BMI result Body Mass Index 44.7 Course Course Course Narrative: This is a Rapid Medical Exam performed in triage by Anayeli Pouliot PA-C. Full HPI, ROS and PE to be performed by primary ED provider. 23 yo M w/PMHx anxiety, depression, GERD presenting to the ED c/o congestion x2 months, now with sinus pressure, loss of voice, dental pain, & coughing up blood x this morning. Also reports diarrhea, abdominal pain, SOB, chest pain when coughing and lightheadedness. PE: +dry cough appreciated. +congested, +maxillary sinus ttp, soft nontender, nondistended Plan: viral testing, CXR, labs, EKG Medical Decision Making Lab Data 12/25/23 15:47 12/25/23 15:47 Labs: Lab Results 12/25/23 Range/Units 15:47 WBC 7.1 (4.8-10.8) X10*3/uL RBC 5.25 (4.60-5.80) X10*6/uL Hgb 15.5 (14.0-18.0) g/dl Hct 46.5 (42.0-52.0) % MCV 88.6 (80.0-98.0) fL MCH 29.5 (27.0-33.0) pg MCHC 33.3 (31.0-36.0) g/dl RDW 13.8 (11.0-16.0) % Plt Count 370 (160-400) X10*3/uL MPV 9.6 (9.4-12.4) fL Immature Gran % (Auto) 0.3 (0.0-0.4) % Neut % (Auto) 62.0 (45-73) % Lymph % (Auto) 28.0 (20-40) % [place] % (Auto) 6.6 (2-11) % Eos % (Auto) 2.4 (0-4) % Baso % (Auto) 0.7 (0-2) % Lymph # (Auto) 2.0 (1.2-4.9) X10*3/uL [place] # (Auto) 0.5 (0.1-1.2) X10*3/uL Eos # (Auto) 0.2 (0.0-0.4) X10*3/uL Baso # (Auto) 0.1 (0.0-0.2) X10*3/uL Abs Immat Gran (auto) 0.02 (0.00-0.03) X10*3/uL Absolute Neuts (auto) 4.4 (2.0-8.3) x10*3/uL Absolute Nucleated RBC 0.000 (0.0-0.012) X10*3/uL Nucleated RBC % (auto) 0.0 (0.0-0.2) /100WBC Sodium 142 (135-145) mmol/L Potassium 3.9 (3.3-5.1) mmol/L Chloride 109 H (96-108) mmol/L Carbon Dioxide 24 (22-29) mmol/L Anion Gap 13 (12-20) BUN 16 (9-16) mg/dL Creatinine 0.78 (0.5-1.4) mg/dL Estim Creat Clear Calc 187.3 Estimated GFR > 60 Random Glucose 99 (60-115) mg/dL Calcium 9.7 (8.4-10.2) mg/dL Magnesium 2.1 (1.6-2.6) mg/dL Total Bilirubin 0.5 (0.0-1.0) mg/dL Direct Bilirubin 0.2 (0.0-0.5) mg/dL AST 57 H (5-37) U/L ALT 139 H (0-40) U/L Alkaline Phosphatase 55 (39-117) U/L Troponin I High Sens < 2.7 (<3.5-35.0) ng/L Total Protein 8.4 H (6.5-8.0) g/dL Albumin 4.4 (3.5-5.0) g/dL Lipase 19 (8-78) U/L Influenza Type A (PCR) NEGATIVE (Negative) Influenza Type B (PCR) NEGATIVE (Negative) RSV RNA Qual (PCR) NEGATIVE (Negative) SARS-CoV-2 RNA (RT-PCR) NEGATIVE (Negative) Discharge Plan Discharge Clinical Impression: Acute viral syndrome Patient Disposition: Left W/O Completing Treatment Prescriptions: No Action omeprazole 40 mg capsule,delayed release(DR/EC) 40 mg PO DAILY Qty: 14 0RF mupirocin 2 % ointment 1 appl topical BID Qty: 15 0RF cetirizine [Zyrtec] 10 mg tablet 10 mg PO DAILY 30 Days Qty: 30 3RF fluoxetine 20 mg capsule 20 mg PO DAILY oxcarbazepine 300 mg tablet 600 mg PO BID 30 Days Qty: 120 1RF Discharge Date/Time: 12/25/23 22:43
--- NOTE | 2023-12-25 15:21 | ECG_ITS ---
Test Reason : cp when coughing Blood Pressure : / mmHG Vent. Rate : 071 BPM Atrial Rate : 071 BPM P-R Int : 132 ms QRS Dur : 092 ms QT Int : 398 ms P-R-T Axes : 030 018 024 degrees QTc Int : 432 ms Normal sinus rhythm Normal ECG No previous ECGs available Referred By: Anayeli Ashraf Electronically Signed By:NICHOLE JONES
[2023-12-25 15:58] LABS: MANUAL DIFF FLAG NO
[2023-12-25 15:59] LABS: Basophils Absolute Auto 0.1 X10*3/uL (0.0-0.2); Basophils Percent Auto 0.7 % (0-2); Eosinophils Absolute Auto 0.2 X10*3/uL (0.0-0.4); Eosinophils Percent Auto 2.4 % (0-4); Hematocrit 46.5 % (42.0-52.0); Hemoglobin 15.5 g/dl (14.0-18.0); Imm Gran Abs Auto 0.02 X10*3/uL (0.00-0.03); Imm Gran Pct Auto 0.3 % (0.0-0.4); Mean Corpuscular HGB Conc 33.3 g/dl (31.0-36.0); Mean Corpuscular Hemoglobin 29.5 pg (27.0-33.0); Mean Corpuscular Volume 88.6 fL (80.0-98.0); Mean Platelet Volume 9.6 fL (9.4-12.4); Monocytes Absolute Auto 0.5 X10*3/uL (0.1-1.2); Monocytes Percent Auto 6.6 % (2-11); Neutrophils Absolute Auto 4.4 x10*3/uL (2.0-8.3); Platelet Count 370 X10*3/uL (160-400); Red Blood Count 5.25 X10*6/uL (4.60-5.80); Red Cell Distribution Width 13.8 % (11.0-16.0); White Blood Count 7.1 X10*3/uL (4.8-10.8)
[2023-12-25 16:12] LABS: Alanine Aminotransferase 139 U/L (0-40); Albumin Level 4.4 g/dL (3.5-5.0); Alkaline Phosphatase 55 U/L (39-117); Anion Gap 13 (12-20); Aspartate Amino Transferase 57 U/L (5-37); Bilirubin Direct 0.2 mg/dL (0.0-0.5); Bilirubin Total 0.5 mg/dL (0.0-1.0); Blood Urea Nitrogen 16 mg/dL (9-16); Calcium 9.7 mg/dL (8.4-10.2); Carbon Dioxide 24 mmol/L (22-29); Chloride 109 mmol/L (96-108); Creatinine Clr Calc Pharmacy 187.3; Estimated Glomerular Filt Rate > 60; Glucose Random 99 mg/dL (60-115); Lipase 19 U/L (8-78); Magnesium 2.1 mg/dL (1.6-2.6); Potassium 3.9 mmol/L (3.3-5.1); Sodium 142 mmol/L (135-145); Total Protein 8.4 g/dL (6.5-8.0)
[2023-12-25 16:21] LABS: Troponin-I High Sensitivity < 2.7 ng/L (<3.5-35.0)
[2023-12-25 16:36] LABS: Influenza A PCR NEGATIVE (Negative); Influenza B PCR NEGATIVE (Negative); Resp Syncy Virus RNA Qual PCR NEGATIVE (Negative); SARS COV2 PCR INHOUSE NEGATIVE (Negative)
--- NOTE | 2023-12-25 22:20 | PC.NURSE ---
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
== END 2023-12-25 22:43 | disposition left against medical advice (07) ==
LOC: HO.ED 22:38
PROVIDERS: Physician Assistant; Emergency Provider Emergency Medicine; PCP Nurse Practitioner Family
DX: B34.9 Viral infection, unspecified (principal); R05.9 Cough, unspecified; Z03.818 Encounter for observation for suspected exposure to other biological agents ruled out
CPT/HCPCS: 0241U; 36415; 71046; 80048; 80076; 83690; 83735; 84484; 85025; 93005; 99283